=== PATIENT | male | born 1960 | race Caucasian/White ===

== ENCOUNTER 2016-09-02 12:42 | Day surgery (SDC) | payer BC ==
[2016-09-01 14:38] VITALS: BMI 35.2
[2016-09-02] MEDS ORDERED: PROPOFOL 20 ML ONE ×2 (13:27)
[2016-09-02] MEDS ORDERED: MIDAZOLAM HCL 2 MG/2 ML SINGLE DOSE VIAL ONE ×2 (13:28)
[2016-09-02] MEDS ORDERED: KETAMINE HCL 500 MG/10 ML VIAL ONE (13:28)
[2016-09-02] MEDS ORDERED: LIDOCAINE VISCOUS 2% ORAL/TOP 20 ML UNIT-DOSE CUP MM ONE (13:55)
[2016-09-02 14:47] VITALS: TEMP 98.1
--- NOTE | 2016-09-02 14:55 | PROC ---
Cardioversion Indication: Atrial flutter Risks and Benefits Explained: Yes Consent on Chart: Yes LUZ MARIA done prior to Cardioversion: Yes (No LA/SHAYLA/RA/RAA thrombus) LUZ MARIA findings: See report Patient anticoagulated: Yes (xarelto) - Procedure Anesthesiologist present: Yes Medication given: propofol sedation Joules delivered: 120J Rhythm post cardioversion: Sinus bradycardia, 57 bpm. Remarks: Successful cardioversion of atrial flutter to sinus rhythm (sinus bradycardia). - Con't current cardiac regimen. F/u with Dr. Martin in 2 weeks
[2016-09-02 15:52] VITALS: BP 114/78; PULSE 67
--- NOTE | 2016-09-03 16:28 | EKG ---
Test Reason : Blood Pressure : / mmHG Vent. Rate : 063 BPM Atrial Rate : 063 BPM P-R Int : 164 ms QRS Dur : 092 ms QT Int : 460 ms P-R-T Axes : 056 083 066 degrees QTc Int : 470 ms POOR DATA QUALITY, INTERPRETATION MAY BE ADVERSELY AFFECTED NORMAL SINUS RHYTHM BIATRIAL ENLARGEMENT INCOMPLETE RIGHT BUNDLE BRANCH BLOCK ABNORMAL ECG WHEN COMPARED WITH ECG OF 02-SEP-2016 13:38, SINUS RHYTHM HAS REPLACED ATRIAL FLUTTER QRS DURATION HAS DECREASED Confirmed by MALA ROLDAN MD ([id number]) on 09/03/2016 4:28:23 PM Referred By: Kim Maritn Confirmed By:MALA ROLDAN MD
== END 2016-09-02 16:01 | disposition home or self-care (01) ==
LOC: JASU-SURG 12:42 → JASU-ENDO 12:42
PROVIDERS: ATTEND Internal Medicine Cardiovascular Disease
PROC: 5A2204Z Restoration of Cardiac Rhythm, Single (ICD-10-PCS; 2016-09-02)
PROC: B246ZZ4 Ultrasonography of Right and Left Heart, Transesophageal (ICD-10-PCS; principal; 2016-09-02 13:00)
DX: I48.92 Unspecified atrial flutter (principal)
CPT/HCPCS: 92960; 93005; 93010; 93312; 93325

== ENCOUNTER 2016-11-04 10:37 | Inpatient (IN) | payer BC ==
[2016-11-04] MEDS ORDERED: DOPAMINE 400 MG/D5W - 250 ML IVPB ONE ×4 (10:58→23:52)
[2016-11-04 11:09] LABS: MCH 29.4 pg (25.7-33.7); MCHC 32.6 g/dl (32.0-35.9); MEAN CELL VOLUME 90.2 fl (80-96); MEAN PLT VOLUME 8.3 fl (7.5-11.1); PLATELET COUNT 95 K/MM3 (134-434); RDW 17.1 % (11.9-15.9)
[2016-11-04 11:11] LABS: ARTERIAL BLD GAS O2 SATURATION 99.1 % (90-98.9); ARTERIAL BLOOD GAS BASE EXCESS -2.7 meq/l (-2-2); ARTERIAL BLOOD GAS HCO3 29.2 meq/L (22-26)
[2016-11-04 11:12] LABS: ALLENS TEST POSITIVE; ART PUNCT SITE RIGHT RADIAL; LPM/O2% 100%; MECH. VENT. YES; METHEMOGLOBIN 0.7 % (0.4-1.5); PT. ON O2? YES; TYPE OF O2 VENT; VENT RATE 14; VT/PRESS 500
[2016-11-04 11:14] LABS: ARTERIAL BLOOD GAS pH 7.15 (7.35-7.45)
--- NOTE | 2016-11-04 11:14 | PDOC ---
History of Present Illness <Gentry Funk - Last Filed: 11/04/16 11:12> - General History Source: EMS, Family Exam Limitations: Unresponsive - History of Present Illness Initial Comments: 11/04/16 12:08 The patient is a 56-year-old male with a significant past medical history of HTN , cellulitis, smoking, COPD, diabetes, sleep apnea, obesity, and presents to the emergency department at 10:36am via EMS for cardiac arrest this morning. As per EMS, the patient was found at home by a friend who called 911 at 9:59 am. The friend reports that the patient was unconscious when he was found, lying immediately behind the door of his house. It is unknown exactly how long the patient was unconscious for before EMS arrived. As per EMS, the patient had two episodes of asystole, one of which occurred en route, and he was resuscitated for 25 minutes, upon which his pulse returned. The patient was given 3 epinephrine, 1 sodium bicarbonate, and 1g calcium chloride en route. His BP was 168/78 upon arrival to the ED. As per family, the patient was recommended by his decorative greens cutter for a cardiac catheter procedure, but was told to lose some weight first. The family also states that the patient was having difficulty moving his bowels this morning. The remaining history is limited as the patient is unresponsive. Allergies: NKDA Past Surgical History: pulmonary saturation, cardioversion x2 Social History: Smoker (half a pack per day), former alcohol user PCP: Dr. Macdonald Hotel Maintenance Engineer: Dr. Martin <KieranLeyla - Last Filed: 11/04/16 14:54> - General Chief Complaint: Cardiac Arrest Stated Complaint: CARDIAC ARREST Time Seen by Provider: 11/04/16 10:52 Past History - Past Medical History Anemia: No Asthma: No Cancer: No Cardiac Disorders: Yes (AFIB) CVA: No COPD: Yes (PT. SNORES) CHF: No Dementia: No Diabetes: No GI Disorders: No Disorders: No HTN: Yes Hypercholesterolemia: No Liver Disease: No Suicide Attempt (Hx): No Seizures: No Thyroid Disease: No - Surgical History Orthopedic Surgery: Yes (LEFT KNEE SURGERY, BACK SURGERY-DISC REMOVED, SPINAL FUSION,) - Immunization History Immunization Up to Date: Yes - Psycho/Social/Smoking Cessation Hx Anxiety: No Suicidal Ideation: No Smoking History: Current every day smoker Have you smoked in the past 12 months: Yes Number of Cigarettes Smoked Daily: 10 'Breaking Loose' booklet given: 09/02/16 Hx Alcohol Use: Yes (occaission) Drug/Substance Use Hx: No Substance Use Type: None Hx Substance Use Treatment: No <Gentry Funk - Last Filed: 11/04/16 11:12> <Leyla Alcaraz - Last Filed: 11/04/16 14:54> - Past Medical History Allergies/Adverse Reactions: Allergies Allergy/AdvReac Type Severity Reaction Status Date / Time No Known Allergies Allergy Verified 11/04/16 11:09 Home Medications: Ambulatory Orders Unobtainable [Unobtainable] 11/04/16 Review of Systems - Review of Systems Able to Perform ROS?: No (Patient is unresponsive) <Leyla Alcaraz - Last Filed: 11/04/16 14:54> *Physical Exam - Vital Signs Last Vital Signs Temp Pulse Resp BP Pulse Ox 57 L 15 91 L 11/04/16 10:40 11/04/16 10:40 11/04/16 10:40 <Gentry Funk - Last Filed: 11/04/16 11:12> - Vital Signs Last Vital Signs Temp Pulse Resp BP Pulse Ox 95.6 F L 116 H 14 122/67 100 11/04/16 10:37 11/04/16 11:30 11/04/16 11:30 11/04/16 11:30 11/04/16 11:30 - Physical Exam Comments: 11/04/16 12:08 GENERAL: (+) Completely unarousable HEAD: No signs of trauma EYES: (+) Pupils dilated and fixed. sclera anicteric, conjunctiva clear ENT: Auricles normal inspection, hearing grossly normal, nares patent, oropharynx clear without exudates. Moist mucosa NECK: Normal ROM, supple. No lymphadenopathy, JVD, or masses. LUNGS: (+)Breath sounds with bagging. No wheezes, and no crackles HEART: Regular rate and rhythm, normal S1 and S2, no murmurs, rubs or gallops. No ectopy. ABDOMEN: (+) Abdomen distended. Soft, nontender, normoactive bowel sounds. No guarding, no rebound. No masses EXTREMITIES: No edema. No clubbing or cyanosis. No cords, erythema, or tenderness NEUROLOGICAL: Cranial nerves II through XII grossly intact. SKIN: Warm, Dry, normal turgor, no rashes or lesions noted. <Leyla Alcaraz - Last Filed: 11/04/16 14:54> Heart Score/ECG Review - ECG Impressions Comment:: 11/04/16 14:53 Sinus tachycardia Biatrial enlargement Right bundle branch block T wave abnormality, consider inferior ischemia Abnormal ECG <Leyla Alcaraz - Last Filed: 11/04/16 14:54> ED Treatment Course - LABORATORY CBC & Chemistry Diagram: 11/04/16 10:55 11/04/16 10:55 <Gentry Funk - Last Filed: 11/04/16 11:12> - LABORATORY CBC & Chemistry Diagram: 11/04/16 12:30 11/04/16 11:50 - ADDITIONAL ORDERS Additional order review: Laboratory Results 11/04/16 11/04/16 11/04/16 11:03 11:03 11:00 INR Puncture Site ABG pH ABG pCO2 at Pt Temp ABG pO2 at Pt Temp ABG HCO3 ABG O2 Sat (Measured) ABG O2 Content ABG Base Excess Cricket Test Carboxyhemoglobin Methemoglobin O2 Delivery Device Oxygen Flow Rate Vent Mode Vent Rate Mechanical Rate PEEP Pressure Support Vent Sodium 137 Potassium 3.4 L Chloride 87 L Carbon Dioxide 29 D Anion Gap 21 H BUN 21 H Creatinine 1.8 H D Creat Clearance w eGFR 38.95 Random Glucose 257 H D Lactic Acid 4.075 H* Calcium 10.5 H Total Bilirubin 0.6 AST 402 H D ALT 364 H D Alkaline Phosphatase 129 H D Creatine Kinase Troponin I Total Protein 7.5 Albumin 3.2 L Crossmatch See Detail 11/04/16 11/04/16 11/04/16 11:00 11:00 11:00 INR 3.72 H Puncture Site Right radial ABG pH 7.15 L* D ABG pCO2 at Pt Temp 87.8 H* D ABG pO2 at Pt Temp 258.0 H* ABG HCO3 29.2 H ABG O2 Sat (Measured) 99.1 H ABG O2 Content 20.2 ABG Base Excess -2.7 L Cricket Test Positive Carboxyhemoglobin 4.8 H Methemoglobin 0.7 O2 Delivery Device Vent Oxygen Flow Rate 100% Vent Mode A/c Vent Rate 14 Mechanical Rate Yes PEEP 5.0 Pressure Support Vent 500 Sodium Potassium Chloride Carbon Dioxide Anion Gap BUN Creatinine Creat Clearance w eGFR Random Glucose Lactic Acid Calcium Total Bilirubin AST ALT Alkaline Phosphatase Creatine Kinase Cancelled Troponin I Cancelled Total Protein Albumin Crossmatch 11/04/16 10:55 INR Puncture Site ABG pH ABG pCO2 at Pt Temp ABG pO2 at Pt Temp ABG HCO3 ABG O2 Sat (Measured) ABG O2 Content ABG Base Excess Cricket Test Carboxyhemoglobin Methemoglobin O2 Delivery Device Oxygen Flow Rate Vent Mode Vent Rate Mechanical Rate PEEP Pressure Support Vent Sodium Cancelled Potassium Cancelled Chloride Cancelled Carbon Dioxide Cancelled Anion Gap Cancelled BUN Cancelled Creatinine Cancelled Creat Clearance w eGFR Random Glucose Cancelled Lactic Acid Calcium Cancelled Total Bilirubin AST ALT Alkaline Phosphatase Creatine Kinase Troponin I Total Protein Albumin Crossmatch 11/04/16 10:55 RBC 2.10 L D MCV 90.2 MCHC 32.6 RDW 17.1 H D MPV 8.3 - Medications Given in the ED: ED Medications Discontinued Medications Generic Name Dose Route Start Last Admin Trade Name Liza PRN Reason Stop Dose Admin Atropine Sulfate 0.5 mg 11/04/16 11:21 11/04/16 10:48 Atropine Injection - IVPUSH 11/04/16 11:22 0.5 mg ONCE ONE Administration Atropine Sulfate 0.5 mg 11/04/16 11:34 11/04/16 10:54 Atropine Injection - IVPUSH 11/04/16 11:35 0.5 mg NOW ONE Administration Epinephrine HCl 1 mg 11/04/16 11:33 11/04/16 10:55 Adrenalin 1:10,000 - IVPUSH 11/04/16 11:34 1 mg NOW ONE Administration Sodium Bicarbonate 50 meq 11/04/16 11:20 11/04/16 10:49 Sodium Bicarbonate 8.4% - IVPUSH 11/04/16 11:21 50 meq ONCE ONE Administration Sodium Bicarbonate 50 meq 11/04/16 11:20 11/04/16 11:59 Sodium Bicarbonate 8.4% - IVPUSH 11/04/16 11:21 50 meq ONCE ONE Administration <Leyla Alcaraz - Last Filed: 11/04/16 14:54> *DC/Admit/Observation/Transfer - Discharge Dispostion Admit: Yes <Gentry Funk - Last Filed: 11/04/16 11:12> - Attestations Scribe Attestion: 11/04/16 12:09 Documentation prepared by Leyla Alcaraz, acting as medical information specialist for Gentry Funk MD. <Leyla Alcaraz - Last Filed: 11/04/16 14:54> Diagnosis at time of Disposition: Cardiac arrest, Signs of return of spontaneous circulation - Discharge Dispostion Condition at time of disposition: Critical
[2016-11-04] MEDS ORDERED: SODIUM BICARBONATE 8.4% 50 MEQ/50 ML DISP.SYRIN IVPUSH ONE ×2 (11:20)
[2016-11-04] MEDS ORDERED: ATROPINE SULFATE 1 MG/10 ML DISP.SYRIN IVPUSH ONE ×2 (11:21→11:34)
[2016-11-04 11:23] LABS: INR 3.72 (0.82-1.09)
[2016-11-04] MEDS ORDERED: DOPAMINE 400 MG/D5W - 250 ML IVPB SCH (11:30)
[2016-11-04 11:36] LABS: ALBUMIN 3.2 g/dl (3.4-5.0); BILIRUBIN,TOTAL 0.6 mg/dL (0.2-1.0); CALCIUM 10.5 mg/dL (8.5-10.1); CREATININE 1.8 mg/dL (0.7-1.3); TOT PROT 7.5 g/dl (6.4-8.2)
[2016-11-04] MEDS ORDERED: SODIUM BICARBONATE 8.4% 50 MEQ/50 ML VIAL ONE (11:46)
[2016-11-04 12:00] LABS: BASOPHIL 0.3 % (0-2.0); EOSINOPHIL 0.8 % (0-4.5); MCH 29.1 pg (25.7-33.7); MCHC 32.2 g/dl (32.0-35.9); MEAN CELL VOLUME 90.3 fl (80-96); MEAN PLT VOLUME 8.6 fl (7.5-11.1); NEUTROPHILS 88.7 % (42.8-82.8); PLATELET COUNT 203 K/MM3 (134-434); RDW 17.6 % (11.9-15.9); WHITE BLOOD COUNT 8.7 K/mm3 (4.0-10.0)
[2016-11-04] MEDS ORDERED: SODIUM CHLORIDE 1,000 ML IV ONE ×2 (12:15→12:33)
[2016-11-04 12:26] LABS: ALBUMIN 3.4 g/dl (3.4-5.0); BILIRUBIN,TOTAL 0.7 mg/dL (0.2-1.0); CALCIUM 9.7 mg/dL (8.5-10.1); CREATININE 1.8 mg/dL (0.7-1.3); TOT PROT 8.1 g/dl (6.4-8.2)
[2016-11-04 12:35] LABS: TROPONIN I 0.39 ng/ml (0.00-0.05)
[2016-11-04 12:37] LABS: BASOPHIL 0.3 % (0-2.0); EOSINOPHIL 0.4 % (0-4.5); MCH 28.9 pg (25.7-33.7); MCHC 32.1 g/dl (32.0-35.9); MEAN CELL VOLUME 90.1 fl (80-96); MEAN PLT VOLUME 8.5 fl (7.5-11.1); NEUTROPHILS 93.3 % (42.8-82.8); PLATELET COUNT 196 K/MM3 (134-434); RDW 17.5 % (11.9-15.9); WHITE BLOOD COUNT 15.8 K/mm3 (4.0-10.0)
[2016-11-04 12:40] LABS: WHITE BLOOD COUNT 4.9 K/mm3 (4.0-10.0)
[2016-11-04 13:07] VITALS: BMI 38.5
--- NOTE | 2016-11-04 13:35 | CONSULT ---
Consultation: REQUESTING PROVIDER: Dr. Macdonald CONSULT REQUEST: We have been asked to medically evaluate this patient for ICU care. HISTORY OF PRESENT ILLNESS: 56 yo M w/ h/o COPD, DM2, MARLEY, obesity, former smoker, cellulitis admitted to the ICU from ED s/p cardiac arrest. Per ED, patient dropped off his girlfriend at work at ~8am and he's found unresponsive and pulseless at 10am by his friend at home. He was asystole en route to ED and resuscitated for 25 mins and 3 epi, 1 NaCO3, 1 CaCl2 were given. He's asystole again in ED with SHANNON in sinus rhythm. Cardioverted twice in office by Dr. Klein (in 12/2015 and 08/2016) REVIEW OF SYSTEMS: Unable to assess PHYSICAL EXAMINATION Intubated on mechanical ventilation Vent settings: AC, RR 20, TV 400, FiO2 100, PEEP 19 On dopamine 15 mcg Last Vital Signs Temp Pulse Resp BP Pulse Ox 95.6 F L 106 H 14 110/66 94 L 11/04/16 10:37 11/04/16 12:55 11/04/16 12:55 11/04/16 12:55 11/04/16 12:40 GENERAL: Intubated, unresponsive to all stimuli, on pressor HEAD:AT, NC EYES: B/L dilated pupils, non-reactive, no corneal reflex LUNGS: CTAB HEART: Tachycardic, regular rhythm, S1 and S2, no murmur, rub ABDOMEN: Soft, obese, mild distention, EXTREMITIES: Cold, weak pulses, no edema. ABG Results ABG pH 7.15 (7.35-7.45) L* D 11/04/16 11:00 ABG pCO2 at Pt Temp 87.8 mmHg (35-45) H* D 11/04/16 11:00 ABG pO2 at Pt Temp 258.0 mmHg (80-100) H* 11/04/16 11:00 ABG HCO3 29.2 meq/L (22-26) H 11/04/16 11:00 ABG O2 Sat (Measured) 99.1 % (90-98.9) H 11/04/16 11:00 ABG O2 Content 20.2 % vol (15-22) 11/04/16 11:00 ABG Base Excess -2.7 meq/l (-2-2) L 11/04/16 11:00 CBCD WBC 15.8 K/mm3 (4.0-10.0) H D 11/04/16 12:30 RBC 5.48 M/mm3 (4.00-5.60) 11/04/16 12:30 Hgb 15.9 GM/dL (11.7-16.9) 11/04/16 12:30 Hct 49.4 % (35.4-49) H 11/04/16 12:30 MCV 90.1 fl (80-96) 11/04/16 12:30 MCHC 32.1 g/dl (32.0-35.9) 11/04/16 12:30 RDW 17.5 % (11.9-15.9) H 11/04/16 12:30 Plt Count 196 K/MM3 (134-434) 11/04/16 12:30 MPV 8.5 fl (7.5-11.1) 11/04/16 12:30 CMP Sodium 137 mmol/L (136-145) 11/04/16 11:50 Potassium 3.2 mmol/L (3.5-5.1) L 11/04/16 11:50 Chloride 89 mmol/L (98-107) L 11/04/16 11:50 Carbon Dioxide 33 mmol/L (21-32) H 11/04/16 11:50 Anion Gap 15 (8-16) 11/04/16 11:50 BUN 21 mg/dL (7-18) H 11/04/16 11:50 Creatinine 1.8 mg/dL (0.7-1.3) H 11/04/16 11:50 Creat Clearance w eGFR 38.95 (>60) 11/04/16 11:50 Calcium 9.7 mg/dL (8.5-10.1) 11/04/16 11:50 Total Bilirubin 0.7 mg/dL (0.2-1.0) 11/04/16 11:50 AST 510 U/L (15-37) H D 11/04/16 11:50 ALT 482 U/L (12-78) H D 11/04/16 11:50 Alkaline Phosphatase 159 U/L (45-117) H D 11/04/16 11:50 Total Protein 8.1 g/dl (6.4-8.2) 11/04/16 11:50 Albumin 3.4 g/dl (3.4-5.0) 11/04/16 11:50 Active Medications Generic Name Dose Route Start Last Admin Trade Name Freq PRN Reason Stop Dose Admin Chlorhexidine Gluconate 1 applic 11/04/16 22:00 Hibiclens For Decolonization - TP HS SUSHANT Heparin Sodium (Porcine) 5,000 unit 11/04/16 18:00 Heparin - SQ Q8H-IV SUSHANT Dopamine HCl/Dextrose 250 mls @ 22.963 mls/hr 11/04/16 11:30 Dopamine 400 Mg/D5w - IVPB TITR SUSHANT Protocol 5 MCG/KG/MIN Dopamine HCl/Dextrose 250 mls @ 45.926 mls/hr 11/04/16 11:35 11/04/16 11:00 Dopamine 400 Mg/D5w - IVPB 11/04/16 17:01 45.926 mls/hr TITR ONE Administration Protocol 10 MCG/KG/MIN Sodium Chloride 1,000 mls @ 1,000 mls/hr 11/04/16 12:33 11/04/16 10:37 Normal Saline - IV 11/04/16 13:32 1,000 mls/hr ASDIR ONE Administration Mupirocin 1 applic 11/04/16 22:00 Bactroban Ointment (For Decolonization) - NS 11/09/16 21:[address] spine on 11/04: negative for fracture or acute pathology CT head on 11/04: Moderate soft tissue swelling over left side. Cannot r/o brain edema. ASSESSMENT/PLAN: 56 yo M w/ h/o COPD, DM2, MARLEY, obesity, former smoker, cellulitis admitted to the ICU from ED s/p cardiac arrest. Cardiac: Cardiogenic shock s/p cardiac arrest; a-fib on elliquis - Etiology unknown - DC unlikely, will trend troponins - Bedside ECHO - On dopamine maintain MAP > 65% Pulm: Acute respiratory failure - ARDS vs. pulmonary edema - Solumedrol 60mg Q8H - Intubated on vent - Maintain Sat > 88% - Low plateau pressure < 30 - Low tidal volume ventilation - PRN and SUSHANT nebulizer Neuro: Anoxic brain injury s/p cardiac arrest - GCS 3 - Unresponsive to all stimuli - Likely evolving brain edema ID: Septic shock vs. leukomoid reaction - Elevated WBC with hypothermia - Trend lactate - F/U mueller cultures - SOFA score = 19 - On empiric vanco and zosyn (Day 1) Renal: Respiratory acidosis - Cont. hydration - F/U ABG FEN - NS 125ml/hr, received 2L in ED - Cont. to monitor lytes - NPO Prophylaxis - DVT: hold - GI: start PPI tomorrow Disposition - Poor prognosis, Full code x 24 hrs per family's wish, Will consider DNR afterwards - Cont. to monitor in ICU Code status - Full code Visit type - Emergency Visit Emergency Visit: Yes ED Registration Date: 11/04/16 Care time: The patient presented to the Emergency Department on the above date and was hospitalized for further evaluation of their emergent condition. - New Patient This patient is new to me today: Yes Date on this admission: 11/04/16 - Critical Care Critical Care patient: Yes Total Critical Care Time (in minutes): 50 Critical Care Statement: The care of this patient involved high complexity decision making to prevent further life threatening deterioration of the patient 's condition and/or to evalute & treat vital organ system(s) failure or risk of failure.
[2016-11-04] MEDS ORDERED: HEPARIN NA (PORCINE) 5,000 UNITS/ML 1ML VIAL SQ SCH (14:00)
[2016-11-04] MEDS: SODIUM CHLORIDE 1,000 ML IV SCH (14:00)
--- NOTE | 2016-11-04 14:46 | CON.CARD ---
Cardiology Consult (text) - Consultation Consultation Note: CC: PEA arrest 56 yo smoker with h/o afib/flutter on xarelto, HTN, HL, diastolic heart failure , severe pulmonary HTN, ?COPD, severe ANGELY presents s/p PEA arrest. Per report, patient was in usual state of health this morning, but found down in his kitchen (unknown duration) by a friend. Multiple episodes of asystole in ambulance and in ER with ROSC (s/p ACLS x 25 minutes) Family states that he shoveled snow two days ago without symptoms. Yesterday noticed some fatigue which had resolved by this morning. Denied any symptoms today. LE edema had improved per family. no cp, sob, dizziness, palps. No recent f/c/ s, cough, congestion, n/v/d, headache, rashes, visual disturbances or transient neurologic symptoms, per reprot. Yarding Engineer: Dr. Martin PMHx: Per hPi. Also on methadone PRN 3-4 times/week for OA pain. Past surgical hx: TKR Social hx: Current tobacco use, 2-3 beers twice per week, no illicits Fam hx: No cardiac disease ROS: Per hPI, limited. obtained from family Ambulatory Orders home cardiac meds: torsemide 100 mg/day, Xarelto 20 mg/day, diltiazem 240 mg BID, metoprolol 100 mg BID, potassium 20 meq/day, atorvastatin 40 mg/day. Current Medications Chlorhexidine Gluconate (Hibiclens For Decolonization -) 1 applic TP HS SUSHANT Heparin Sodium (Porcine) (Heparin -) 5,000 unit SQ TID SUSHANT Dopamine HCl/Dextrose (Dopamine 400 Mg/D5w -) 250 mls @ 25.515 mls/hr IVPB TITR SUSHANT; 5 MCG/KG/MIN PRN Reason: Protocol Dopamine HCl/Dextrose (Dopamine 400 Mg/D5w -) 250 mls @ 45.926 mls/hr IVPB TITR ONE; 10 MCG/KG/MIN PRN Reason: Protocol Stop: 11/04/16 17:01 Last Admin: 11/04/16 11:00 Dose: 45.926 mls/hr Sodium Chloride (Normal Saline -) 1,000 mls @ 125 mls/hr IV ASDIR SUSHANT Mupirocin (Bactroban Ointment (For Decolonization) -) 1 applic NS BID [facility] Stop: 11/09/16 21:59 Vital Signs - 24 hr 11/04/16 11/04/16 11/04/16 10:37 10:40 11:00 Temperature 95.6 F L Pulse Rate 51 L 57 L 55 L Pulse Rate [ Apical] Respiratory 14 Rate Blood Pressure 68/36 77/47 Blood Pressure [Left Arm] O2 Sat by Pulse 98 91 L Oximetry (%) 11/04/16 11/04/16 11/04/16 11:15 11:18 11:19 Temperature Pulse Rate 116 H Pulse Rate [ Apical] Respiratory 14 15 Rate Blood Pressure Blood Pressure [Left Arm] O2 Sat by Pulse 100 Oximetry (%) 11/04/16 11/04/16 11/04/16 11:30 12:40 12:55 Temperature Pulse Rate 106 H Pulse Rate [ 116 H 103 H Apical] Respiratory 14 14 14 Rate Blood Pressure 110/66 Blood Pressure 122/67 101/67 [Left Arm] O2 Sat by Pulse 100 94 L Oximetry (%) 11/04/16 13:35 Temperature Pulse Rate Pulse Rate [ Apical] Respiratory 16 Rate Blood Pressure Blood Pressure [Left Arm] O2 Sat by Pulse Oximetry (%) Intake & Output 11/02/16 11/03/16 11/04/16 11/05/16 07:59 07:59 07:59 07:59 Output Total 20 Balance -20 Weight 300 lb Intubated, sedated. unresponsive pupils fixed and dilated no gag reflex jvd tds tachycardic, regular. nl s1, s2. no m/r/g coarse bs, + wheezes/rales + bs soft nt nd no hepatosplenomegaly ext without e/c/c + dp/pt no jaundice, diaphoresis CBC, BMP 11/04/16 12:30 11/04/16 11:50 Laboratory Tests 11/04/16 11/04/16 11/04/16 11:00 11:00 11:00 INR 3.72 H ABG pH 7.15 L* D ABG pCO2 at Pt Temp 87.8 H* D ABG pO2 at Pt Temp 258.0 H* ABG HCO3 29.2 H Carboxyhemoglobin 4.8 H Potassium 3.4 L Creatinine 1.8 H D Lactic Acid Total Bilirubin 0.6 AST 402 H D ALT 364 H D Alkaline Phosphatase 129 H D Creatine Kinase Creatine Kinase Index Albumin 3.2 L 11/04/16 11/04/16 11:03 11:50 INR ABG pH ABG pCO2 at Pt Temp ABG pO2 at Pt Temp ABG HCO3 Carboxyhemoglobin Potassium Creatinine Lactic Acid 4.075 H* Total Bilirubin AST ALT Alkaline Phosphatase Creatine Kinase 207 D Creatine Kinase Index 4.0 Albumin Initial EKG: intermittent ectopic atrial beats and junctional/ventricular escape beats. ventricular rate 51 bpm Repeat EKG: likely sinus tach, RBBB. Non-specific t wave changes. No acute ischemic changes. tele: sinus tach, no events CXR: read as no infiltrates. But by my review appears to have possible vascular congestion (although 4 quadrant without obvious effusions, could also be c/w ARDS) 08/2016 LUZ MARIA: No thrombus. Nl lv size/fn. RV dilated, nl func. Mod TR. 2015 echo: Mild LVH. Nl LV size and function. E to A reversal. Mild RV dilation. RVSP 31 + RAP, mild pHTN. Mild asc ao dilation 2015 persantine stress MPI: no EKG changes. Nl perf. nl EF 2014 echo: Nl LV/RV. mild-mod TR. RVSP:>60. 56 yo smoker with h/o afib/flutter on xarelto, HTN, HL, diastolic heart failure , severe pulmonary HTN, ?COPD, severe ANGELY presents s/p PEA arrest. PEA arrest - suspect pulmonary etiology. CE's only mildly elevated. EKG without evidence of [place]. Con't trending enzymes. Can consider repeating echo if patient has some neurologic recovery. - potassium repletion. - management of hypercapneic/hypoxic respiratory failure per pulm/critical care. Currently intubated, sedated. - telemetry monitoring for arrhythmia, Symptomatic paroxysmal atrial flutter/ fibrillation --> currently in SR - Followed by [facility] and is a candidate for flutter/fib ablation. However, dr. avila recommended delaying until he was able to improve underlying risk factors's (ie. weight loss, ANGELY treatment) - continue anticoagulation. INR is not a reliable indicator of xarelto drug levels. Since patient is NPO, would initiate heparin drip tomorrow morning (or 24 hours after last xarelto dose) - holding rate control meds (outpatient regimen diltiazem 240 mg BID, metoprolol 100 mg BID) while on pressors diastolic dysfunction/chronic LE edema with recurrent cellulitis and LE wounds. - had been recovering from acute exacerbation in june in setting of RVR. Diuresis had stalled in setting of aflutter and picked up again after conversion to SR in August. Had not yet returned to euvolemia and was undergoing active uptitration of diuretic regimen over past few months. Torsemide last increased the first week of october and currently with significant improvement in LE edema. - Appears euvolemic.OK for IVF if needed. Holding torsemide. severe (most recently mild) pulmonary hypertension with RV enlargement - + severe angely with baseline supine hypoxemia and superimposed desaturations/ obesity hypoventilation. Had recently followed up on BIPAP titration, but not yet had successful titration study. - also with underlying pulmonary disease (chronic hypercapnea) getting ongoing work up. PFT's this month described as severe airway obstruction but with reduced lung volumes. Interpreted as severe restriction. Pre and post oxygen saturation testing had been pending. - Management of current hypercapneic/hypoxic respiratory failure per pmd. HTN with LVH - currently hypotensive requiring pressors. HL - holding statin while npo mild ao dilation - holding metoprolol as above Overall poor prognosis, exam concerning for irreversible brain injury. Discussed with pulm/critical care, pmd and family. Family aware of prognosis. Would like to monitor over the next 24 hours and then decide on goals of care. est cct 40 min.
--- NOTE | 2016-11-04 15:10 | HP ---
Admitting History and Physical - Primary Care Physician PCP: Yu Macdonald - Admission Chief Complaint: cardiac arrest History of Present Illness: Family found pt unresponsive, asystole upon ems arrival, downtime is anywhere from 30 minutes to over 2 hours. Was resuscitated twice from asystole. Currently intubated/unresponsive. Shoveled snow two days ago, was c/o of constipation for 3 days,otherwise live-in -girlfriend offers no other complaints from pt. History Source: Significant Other Limitations to Obtaining History: Intubated - Past Medical History Cardiovascular: Yes: AFIB (flutter s/p cardioversion twice within last year, most recent Aug 2016), CHF (diastolic), HTN, Pulmonary Hypertension, Other ( bilateral chronic lower extremitiy cellulitis) Pulmonary: Yes: Sleep Apnea Musculoskeletal: Yes: Other (s/p left TKR) - Past Surgical History Past Surgical History: Yes: Joint Replacement (L TKR) - Advance Directives Advance Directives: No: Health Care Proxy - Smoking History Smoking history: Current every day smoker Have you smoked in the past 12 months: Yes Aproximately how many cigarettes per day: 10 - Alcohol/Substance Use Hx Alcohol Use: Yes (occaission) - Social History Usual Living Arrangement: Yes: With Significant Other ADL: Independent 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 History of Recent Travel: No Home Medications - Allergies Allergies/Adverse Reactions: Allergies Allergy/AdvReac Type Severity Reaction Status Date / Time No Known Allergies Allergy Verified 11/04/16 11:09 - Home Medications Home Medications: Ambulatory Orders Unobtainable [Unobtainable] 11/04/16 Family Disease History - Family Disease History Family Disease History: CA: Brother (Prostate) Review of Systems Unable to obtain ROS, reason: unresponsive Physical Examination Vital Signs: Vital Signs Temperature 95.6 F L 11/04/16 10:37 Pulse Rate 106 H 11/04/16 12:55 Respiratory Rate 16 11/04/16 13:35 Blood Pressure 110/66 11/04/16 12:55 O2 Sat by Pulse Oximetry (%) 94 L 11/04/16 12:40 Constitutional: Yes: Obese Eyes: Yes: Other (conjunctival injection) Neck: Yes: Other (thick) Cardiovascular: Yes: Tachycardia (mild sinus tach ~106/min) Respiratory: Yes: CTA Bilaterally, Mechanically Ventilated Gastrointestinal: Yes: Abdomen, Obese, Distention Edema: LLE: Trace, RLE: Trace Peripheral Pulses WNL: Yes Neurological: Yes: Unresponsive (pupils fixed and dilated, absent corneal reflex ) Labs: CBC, BMP 11/04/16 12:30 11/04/16 11:50 INR >3 first set of cardiac enzymes Imaging - Results Chest X-ray: Report Reviewed X-ray: Report Reviewed Cat Scan: Report Reviewed Problem List - Problems (1) Cardiac arrest Code(s): I46.9 - CARDIAC ARREST, CAUSE UNSPECIFIED (2) Atrial fibrillation Code(s): I48.91 - UNSPECIFIED ATRIAL FIBRILLATION Qualifiers: Atrial fibrillation type: paroxysmal Qualified Code(s): I48.0 - Paroxysmal atrial fibrillation (3) Congestive heart failure Code(s): I50.9 - HEART FAILURE, UNSPECIFIED Qualifiers: Congestive heart failure type: diastolic Congestive heart failure chronicity: chronic Qualified Code(s): I50.32 - Chronic diastolic ( congestive) heart failure (4) Diastolic CHF Code(s): I50.30 - UNSPECIFIED DIASTOLIC (CONGESTIVE) HEART FAILURE Qualifiers : Qualified Code(s): I50.30 - Unspecified diastolic (congestive) heart failure (5) Hypertension Code(s): I10 - ESSENTIAL (PRIMARY) HYPERTENSION Qualifiers: Hypertension type: essential hypertension Qualified Code(s): I10 - Essential (primary) hypertension (6) MARLEY (obstructive sleep apnea) Code(s): G47.33 - OBSTRUCTIVE SLEEP APNEA (ADULT) (PEDIATRIC) Assessment/Plan Cardiac arrest/asystole severe MARLEY COPD diastolic CHF Afib/flutter s/p cardioversion twice Obesity Smoking history shock liver Plan iv fluids dopamine resume AC once INR is below 2 resp support
[2016-11-04 16:08] LABS: ARTERIAL BLD GAS O2 SATURATION 83.6 % (90-98.9); ARTERIAL BLOOD GAS BASE EXCESS 4.6 meq/l (-2-2); ARTERIAL BLOOD GAS HCO3 34.8 meq/L (22-26)
[2016-11-04 16:09] LABS: ALLENS TEST POSITIVE; ART PUNCT SITE RIGHT RADIAL; ARTERIAL BLOOD GAS pH 7.29 (7.35-7.45); LPM/O2% 100; MECH. VENT. YES; PT. ON O2? YES; TYPE OF O2 VENT; VENT RATE 20; VT/PRESS 400
[2016-11-04 16:10] LABS: ARTERIAL BLOOD GAS PO2 56.7 mmHg (80-100)
--- NOTE | 2016-11-04 16:28 | PN ---
Teaching Attending Note Name of Resident: [employer] [facility] ATTENDING PHYSICIAN STATEMENT I saw and evaluated the patient. I reviewed the resident's note and discussed the case with the resident. I agree with the resident's findings and plan as documented. SUBJECTIVE: Briefly, 56yo male with h/o COPD, chronic hypercapneic respiratory failure, MARLEY not on PAP, morbid obesity, pulmonary HTN, atrial fibrillation on anticoagulation, CKD who was found unresponsive for unknown duration in asystolic cardiac arrest s/p ACLS x 25 minutes. Currently in the ICU, intubated , unresponsive on dopamine gtt. OBJECTIVE: Last Vital Signs Temp Pulse Resp BP Pulse Ox 94.4 F L 102 H 20 109/80 92 L 11/04/16 16:00 11/04/16 16:00 11/04/16 16:00 11/04/16 16:00 11/04/16 13:30 Intake & Output 11/01/16 11/02/16 11/03/16 11/04/16 23:59 23:59 23:59 23:59 Output Total 20 Balance -20 Weight 300 lb Gen: intubated, unresponsive, +spontaneous breaths HEENT: pupils fixed, dilated, no oculocephalic reflex, no gag or cough reflex Heart: RRR Lung: distant breath sounds Abd: soft, obese, nontender Ext: + edema CBC, BMP 11/04/16 12:30 11/04/16 11:50 ABG Results ABG pH 7.29 (7.35-7.45) L 11/04/16 16:01 ABG pCO2 at Pt Temp 74.5 mmHg (35-45) H* 11/04/16 16:01 ABG pO2 at Pt Temp 56.7 mmHg (80-100) L D 11/04/16 16:01 ABG HCO3 34.8 meq/L (22-26) H 11/04/16 16:01 ABG O2 Sat (Measured) 83.6 % (90-98.9) L 11/04/16 16:01 ABG O2 Content 21.2 % vol (15-22) 11/04/16 16:01 ABG Base Excess 4.6 meq/l (-2-2) H 11/04/16 16:01 INR, PTT INR 3.72 (0.82-1.09) H 11/04/16 11:00 Active Medications Chlorhexidine Gluconate (Hibiclens For Decolonization -) 1 applic TP HS SUSHANT Dopamine HCl/Dextrose (Dopamine 400 Mg/D5w -) 250 mls @ 25.515 mls/hr IVPB TITR SUSHANT; 5 MCG/KG/MIN PRN Reason: Protocol Dopamine HCl/Dextrose (Dopamine 400 Mg/D5w -) 250 mls @ 45.926 mls/hr IVPB TITR ONE; 10 MCG/KG/MIN PRN Reason: Protocol Stop: 11/04/16 17:01 Last Titration: 11/04/16 12:00 Dose: 13.56 mcg/kg/min Sodium Chloride (Normal Saline -) 1,000 mls @ 125 mls/hr IV ASDIR SUSHANT Last Admin: 11/04/16 14:00 Dose: 125 mls/hr Pantoprazole Sodium (Protonix 40mg Ivpb (Pre-Docked)) 100 mls @ 200 mls/hr IVPB DAILY SUSHANT Mupirocin (Bactroban Ointment (For Decolonization) -) 1 applic NS BID SUSHANT Stop: 11/09/16 21:59 ASSESSMENT AND PLAN: s/p Cardiopulmonary Arrest - suspect Primary respiratory arrest Acute on Chronic Hypercapneic and Hypoxic Respiratory Failure r/o Acute COPD Exacerbation r/o ARDS vs Acute Pulmonary Edema Shock - cardiogenic vs septic Acute Kidney Injury Elevated LFTs likely ischemic injury Lactic Acidosis MARLEY/OHS Morbid Obesity Atrial Fibrillation Pulmonary HTN - IVF - pressor support to maintain MAP >65 - empiric medrol - inhaled bronchodilators - mueller culture - start empiric antibiotics after cultures collected - trend lactate, LFTs - cycle cardiac enzymes - echocardiogram - low tidal volume ventilation, titrate PEEP, FiO2 to maintain SpO2 88% if possible - poor overall prognosis for meaningful recovery given current neurologic exam but will continue supportive care - DVT/GI prophylaxis - ICU monitoring Thank you for this consult Mal Tarango MD - minimize sedation
[2016-11-04] MEDS ORDERED: VANCOMYCIN 1 GRAM (PRE-DOCKED) 1,000 MG/250 ML BAG IVPB ONE ×2 (17:00→22:00)
[2016-11-04 17:33] LABS: URINE APPEARANCE SLCLOUDY; URINE BILIRUBIN NEGATIVE (NEGATIVE); URINE COLOR YELLOW; URINE GLUCOSE (UA) 1+ (NEGATIVE); URINE KETONE TRACE (NEGATIVE); URINE LEUK ESTERASE NEGATIVE (NEGATIVE); URINE NITRITE NEGATIVE (NEGATIVE); URINE UROBILINOGEN NEGATIVE E.U./dl (0.2-1.0)
[2016-11-04 17:34] LABS: URINE BLOOD 2+ (NEGATIVE); URINE PROTEIN 3+ (NEGATIVE)
[2016-11-04 17:38] LABS: URINE RBC 65 /hpf (0-3); URINE WBC 6 /hpf (3-5)
[2016-11-04] MEDS: PIPERACILLIN/TAZOB 2.25 GM 50 ML IVPB SCH ×2 (18:08→20:43)
[2016-11-04] MEDS: methylPREDNISolone NA SUCC 125 MG/2 ML VIAL IVPB SCH (18:09)
[2016-11-04 18:10] LABS: INR 1.45 (0.82-1.09); PROTHROMBIN TIME (PATIENT) 16.1 SEC (9.98-11.88)
[2016-11-04] MEDS: KCL 10 MEQ IVPB 100 ML IVPB SCH ×3 (19:00→21:04)
[2016-11-04 19:08] LABS: TROPONIN I 2.75 ng/ml (0.00-0.05)
[2016-11-04] MEDS ORDERED: ASPIRIN SUPPOSITORY 600 MG SUPP.RECT PR SCH (19:30)
[2016-11-04] MEDS: ASPIRIN 300 MG SUPP.RECT RC SCH (20:40)
[2016-11-04] MEDS: MUPIROCIN 2% TOPICAL OINTMENT FOR DECOLONIZATION NS SCH (21:04)
[2016-11-04] MEDS: CHLORHEXIDINE GLUCONATE 4% CLEANSER FOR DECOLONIZATION TP SCH (21:05)
[2016-11-04] MEDS ORDERED: VANCOMYCIN 1,000 MG in DEXTROSE 5%-WATER - 250 ML IVPB SCH (22:00)
[2016-11-04 22:33] LABS: MAGNESIUM 1.9 mg/dL (1.8-2.4); PHOSPHOROUS 5.8 mg/dL (2.5-4.9)
[2016-11-04 22:48] LABS: TROPONIN I 4.71 ng/ml (0.00-0.05)
[2016-11-05] MEDS: methylPREDNISolone NA SUCC 125 MG/2 ML VIAL IVPB SCH ×4 (02:50→22:36)
[2016-11-05] MEDS: PIPERACILLIN/TAZOB 2.25 GM 50 ML IVPB SCH (02:50)
[2016-11-05] MEDS ORDERED: hydrALAZINE HCL 20 MG/ML VIAL IVPUSH ONE (04:12)
[2016-11-05] MEDS ORDERED: ATROPINE SULFATE 1 MG/10 ML DISP.SYRIN ONE (04:13)
[2016-11-05] MEDS ORDERED: MANNITOL 25% 12.5 GM/50 ML VIAL IVPB ONE (04:29)
--- NOTE | 2016-11-05 04:40 | PN ---
Progress Note (short form) - Note Progress Note: Called bedside by RN for HTN (225/150), bradycardia and irregular resp rate. Briefly this patient had prolonged arrest x2 likely with severe anoxic brain injury On initial exam in ICU pupils unresponsive, no gag, no cough, no corneals but did have spont respirations. At 4:15AM patient neurologic exam unchanged. Given signs of nicole's triad patient treated for cerebral edema: mannitol 1mg/kg. Hydralazine ordered given CPP >120. We are unable to obtain CT head at this time given severe hypoxia on mechanical ventilation 100%, PEEP +14 and sat 70-80%. Exam: HR: 45 BP 225/150 RR: 22 Sat 75% Exam: Neuro: pupils: 6mm and non reactive, no gag, no cough, no corneals Pulm: bilateral coarse CV: bradycardia S1, S2 Assessment/Plan: 56 yo man with prolonged cardiac arrest x2 likely severe anoxic injury now with cushings triad c/f cerebral edema +/- seizure -neurology consulted -cont hypothermia protocol -CT head once stable -empiric mannitol for ICP crisis: 1mg/kg x1 -send serum osm and urine osm and follow per neurology -hydralazine for goal CPP 80-120 -start empiric keppra given possible seizure -EEG Boerem ACNP Pulm/CCM CCT: 35m Problem List - Problems (1) Anoxic brain injury Code(s): G93.1 - ANOXIC BRAIN DAMAGE, NOT ELSEWHERE CLASSIFIED (2) Cerebral edema due to anoxia Code(s): G93.6 - CEREBRAL EDEMA R09.02 - HYPOXEMIA
[2016-11-05] MEDS: levETIRAcetam 500 MG/5 ML INJECTION VIAL IVPB SCH ×3 (05:00→23:19)
[2016-11-05 07:42] LABS: ARTERIAL BLD GAS O2 SATURATION 93.8 % (90-98.9); ARTERIAL BLOOD GAS BASE EXCESS 1.8 meq/l (-2-2); ARTERIAL BLOOD GAS HCO3 29.2 meq/L (22-26)
[2016-11-05 07:43] LABS: ALLENS TEST POSITIVE; ART PUNCT SITE RIGHT RADIAL; LPM/O2% 100%; PT. ON O2? YES
[2016-11-05 07:44] LABS: MECH. VENT. ESPRIT; TYPE OF O2 MEC.VENT; VENT RATE 20; VT/PRESS 400
[2016-11-05 07:45] LABS: ARTERIAL BLOOD GAS pH 7.33 (7.35-7.45)
[2016-11-05 07:46] LABS: ARTERIAL BLOOD GAS PO2 74.1 mmHg (80-100)
[2016-11-05] MEDS: DOPAMINE 400 MG/D5W - 250 ML IVPB SCH (08:00)
--- NOTE | 2016-11-05 08:04 | PN ---
Progress Note, Physician Chief Complaint: ID Full note dictated Cardiac arrest Comatose Pupils fixed dilated - Current Medication List Current Medications: Active Medications Aspirin (Asa -) 600 mg RC DAILY [facility] Last Admin: 11/04/16 20:40 Dose: 600 mg Chlorhexidine Gluconate (Hibiclens For Decolonization -) 1 applic TP HS [facility] Last Admin: 11/04/16 21:05 Dose: 1 applic Sodium Chloride (Normal Saline -) 1,000 mls @ 125 mls/hr IV ASDIR SUSHANT Last Admin: 11/04/16 14:00 Dose: 125 mls/hr Pantoprazole Sodium (Protonix 40mg Ivpb (Pre-Docked)) 100 mls @ 200 mls/hr IVPB DAILY SUSHANT Piperacillin Sod/Tazobactam Sod (Zosyn 2.25gm Ivpb (Pre-Docked)) 50 mls @ 100 mls/hr IVPB Q6H-IV SUSHANT PRN Reason: Protocol Last Admin: 11/05/16 02:50 Dose: 100 mls/hr Vancomycin HCl 1,000 mg/ (Dextrose) 250 mls @ 250 mls/hr IVPB BID SUSHANT PRN Reason: Protocol Stop: 11/05/16 21:59 Levetiracetam (Keppra Injection -) 1,000 mg IVPB BID [facility] Last Admin: 11/05/16 05:00 Dose: 1,000 mg Methylprednisolone Sodium Succinate (Solu-Medrol -) 60 mg IVPB Q8H-IV SUSHANT Last Admin: 11/05/16 02:50 Dose: 60 mg Mupirocin (Bactroban Ointment (For Decolonization) -) 1 applic NS BID [facility] Stop: 11/09/16 21:59 Last Admin: 11/04/16 21:04 Dose: 1 applic - Objective Vital Signs: Vital Signs Temperature 95 F L 11/05/16 05:00 Pulse Rate 76 11/05/16 07:00 Respiratory Rate 21 11/05/16 07:17 Blood Pressure 140/67 11/05/16 07:00 O2 Sat by Pulse Oximetry (%) 95 11/04/16 22:13 Constitutional: Yes: Severe Distress Cardiovascular: Yes: S1, S2 Respiratory: Yes: Rhonchi Gastrointestinal: Yes: Distention, Hypoactive Bowel Sounds. No: Tenderness Edema: No Labs: CBC, BMP 11/04/16 12:30 INR, PTT INR 1.45 (0.82-1.09) H D 11/04/16 17:00 Problem List - Problems (1) Anoxic brain injury Code(s): G93.1 - ANOXIC BRAIN DAMAGE, NOT ELSEWHERE CLASSIFIED (2) Cardiac arrest Code(s): I46.9 - CARDIAC ARREST, CAUSE UNSPECIFIED Assessment/Plan Laboratory Tests 11/04/16 11/04/16 11/04/16 11:00 11:03 11:50 WBC RBC Hct Plt Count ABG pH 7.15 L* D ABG pCO2 at Pt Temp ABG pO2 at Pt Temp Oxygen Flow Rate 100% BUN 21 H Creatinine 1.8 H Creat Clearance w eGFR 38.95 Lactic Acid 4.075 H* AST 510 H D ALT 482 H D Alkaline Phosphatase 159 H D Creatine Kinase Troponin I Urine RBC Urine WBC 11/04/16 11/04/16 11/04/16 12:30 16:00 17:00 WBC 15.8 H D RBC 5.48 Hct 49.4 H Plt Count 196 ABG pH ABG pCO2 at Pt Temp ABG pO2 at Pt Temp Oxygen Flow Rate BUN Creatinine Creat Clearance w eGFR Lactic Acid 2.773 H* AST ALT Alkaline Phosphatase Creatine Kinase Troponin I Urine RBC 65 Urine WBC 6 11/04/16 11/05/16 21:30 07:35 WBC RBC Hct Plt Count ABG pH 7.33 L ABG pCO2 at Pt Temp 57.2 H D ABG pO2 at Pt Temp 74.1 L D Oxygen Flow Rate 100% BUN Creatinine Creat Clearance w eGFR Lactic Acid AST ALT Alkaline Phosphatase Creatine Kinase 696 H Troponin I 4.71 H* D Urine RBC Urine WBC Assessment Cardiopulmonary arrest/ Anoxic encephalopathy Plan Panculture and given antibiotic Unasyn for aspiration pending c/s Ruchi BRAXTON
[2016-11-05 08:24] LABS: MCH 28.6 pg (25.7-33.7); MCHC 31.7 g/dl (32.0-35.9); MEAN CELL VOLUME 90.1 fl (80-96); MEAN PLT VOLUME 9.4 fl (7.5-11.1); PLATELET COUNT 261 K/MM3 (134-434); RDW 17.8 % (11.9-15.9); WHITE BLOOD COUNT 26.1 K/mm3 (4.0-10.0)
[2016-11-05 08:36] LABS: INR 1.42 (0.82-1.09); PROTHROMBIN TIME (PATIENT) 15.7 SEC (9.98-11.88)
[2016-11-05 08:39] LABS: ACTIVATED PTT 41.4 SECONDS (26.9-34.4)
--- NOTE | 2016-11-05 08:46 | CONS ---
DATE OF CONSULTATION: HISTORY: This is a 56-year-old white male who I am asked to see if the ICU after a cardiac arrest requiring resuscitation for asystole. The patient has an extensive cardiac history, which includes atrial flutter requiring cardioversion twice last year, most recently August 2016, congestive heart failure, pulmonary hypertension, hypertension, and chronic bilateral lower extremity edema and cellulitis. He also has sleep apnea. Presently, he is comatose on the ventilator with pupils fixed and dilated. He is hypothermic, and I assume I am asked to see him now for possible aspiration and possible underlying sepsis. No other information is currently known regarding the time leading up to his arrest. PAST MEDICAL HISTORY: Includes joint replacement with left total knee. MEDICATIONS: Prior medications unknown. ALLERGIES: Not known. SOCIAL HISTORY: Current every day smoker. Lives with significant other. 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 No recent travel. FAMILY HISTORY: Positive for prostate cancer. REVIEW OF SYSTEMS: Respiratory: Currently intubated. Cardiac: As noted in history of present illness. Gastrointestinal: No history of abdominal pain, bleeding per rectum, hematemesis. Genitourinary: Incontinent of urine. No gross hematuria. PHYSICAL EXAMINATION: Vital Signs: Temperature 95.6, pulse 106, respiratory rate 16, blood pressure 110/66, O2 oximetry 94. General: An obese male. Neck: Supple. Heart: Tachycardic. No audible murmur. Respiratory: Bilateral rhonchi. Abdomen: Distended, obese. No obvious tenderness. Bowel sounds diminished. Extremities: Lower extremity edema trace. Neurologic: Unresponsive. Pupils fixed and dilated. The white count on steroids 15.8, hemoglobin 15.9, platelets 196 with 93% polys, 4 lymphocytes, 2 monocytes. INR 1.45 initially 3.72. ABG 7.33, 57, 74 on 100% oxygen. BUN 21, creatinine 1.8, AST 510, ALT 482, alkaline phosphatase 159. TNI 2.75. Urinalysis: 65 RBCs, 6 WBCs. CAT scan of the head shows mild atrophy with no acute intracranial process. Chest x-ray from November 04 was reviewed and shows intubation with no obvious infiltrates seen. ASSESSMENT: A 56-year-old male with extensive prior cardiac history including cardioversions, hypertension, and pulmonary hypertension who presents following a cardiac arrest. Hypothermic and on low-dose dopamine. No obvious focus of infection present. The possibility of aspiration always a consideration in this setting. He has been empirically treated with antibiotics, and at this point, we will cover him for aspiration with Unasyn from the community having gotten a gram of vancomycin and a dose of Zosyn. Unasyn 1.5 g q.6. We will obtain blood, urine, and sputum cultures. Overall prognosis poor given fixed and dilated pupils, anoxic encephalopathy. JAMISON MARCELO M.D. [id number]
[2016-11-05] MEDS: AMPICILLIN NA/SULBACTAM NA 100 ML IVPB SCH ×3 (09:30→23:19)
[2016-11-05] MEDS: PANTOPRAZOLE SODIUM 40MG/100 ML IVPB SCH (09:30)
[2016-11-05] MEDS: SODIUM CHLORIDE 1,000 ML IV SCH ×2 (09:34→16:57)
--- NOTE | 2016-11-05 10:48 | PN ---
Progress Note (short form) - Note Progress Note: PULMONARY/CCM Pt seen and examined in the ICU. More respiratory effort today. Left pupil sluggish otherwise unresponsive. Last Vital Signs Temp Pulse Resp BP Pulse Ox 95 F L 66 21 95/64 98 11/05/16 05:00 11/05/16 10:00 11/05/16 10:39 11/05/16 10:00 11/05/16 10:00 Intake & Output 11/02/16 11/03/16 11/04/16 11/05/16 23:59 23:59 23:59 23:59 Intake Total 1168.1 922 Output Total 500 200 Balance 668.1 722 Weight 300 lb Gen: intubated, unresponsive Heart: RRR Lung: decreased breath sounds at the bases Abd: soft, nontender Ext: + edema CBC, BMP 11/05/16 08:00 Active Medications Aspirin (Asa -) 600 mg RC DAILY [facility] Last Admin: 11/04/16 20:40 Dose: 600 mg Chlorhexidine Gluconate (Hibiclens For Decolonization -) 1 applic TP HS [facility] Last Admin: 11/04/16 21:05 Dose: 1 applic Sodium Chloride (Normal Saline -) 1,000 mls @ 125 mls/hr IV ASDIR [facility] Last Admin: 11/05/16 09:34 Dose: 125 mls/hr Pantoprazole Sodium (Protonix 40mg Ivpb (Pre-Docked)) 100 mls @ 200 mls/hr IVPB DAILY [facility] Last Admin: 11/05/16 09:30 Dose: 200 mls/hr Ampicillin Sodium/Sulbactam Sodium (Unasyn 1.5 Gm (Pre-Docked)) 100 mls @ 200 mls/hr IVPB Q6H-IV [facility] Last Admin: 11/05/16 09:30 Dose: 200 mls/hr Levetiracetam (Keppra Injection -) 1,000 mg IVPB BID [facility] Last Admin: 11/05/16 09:33 Dose: 1,000 mg Methylprednisolone Sodium Succinate (Solu-Medrol -) 60 mg IVPB Q8H-IV [facility] Last Admin: 11/05/16 09:31 Dose: 60 mg Mupirocin (Bactroban Ointment (For Decolonization) -) 1 applic NS BID [facility] Stop: 11/09/16 21:59 Last Admin: 03/17/17 21:04 Dose: 1 applic A/P s/p Cardiopulmonary Arrest - suspect Primary respiratory arrest Acute on Chronic Hypercapneic and Hypoxic Respiratory Failure r/o Acute COPD Exacerbation r/o ARDS vs Acute Pulmonary Edema Shock - cardiogenic vs septic Acute Kidney Injury Elevated LFTs likely ischemic injury Lactic Acidosis MARLEY/OHS Morbid Obesity Atrial Fibrillation Pulmonary HTN - IVF - titrate pressor support to maintain MAP >65 - continue empiric medrol - inhaled bronchodilators - f/u cultures - continue empiric antibiotics - trend lactate, LFTs - cycle cardiac enzymes - echocardiogram - low tidal volume ventilation, titrate PEEP, FiO2 to maintain SpO2 88% if possible - poor overall prognosis for meaningful recovery given current neurologic exam but will continue supportive care - DVT/GI prophylaxis - continue ICU monitoring CCT 38'
--- NOTE | 2016-11-05 12:32 | CONSULT ---
Consult - text type - Consultation Consultation Note: Neurology The patient is a 56-year-old male with a significant past medical history of HTN , cellulitis, smoking, COPD, diabetes, sleep apnea, obesity, and presents to the emergency department for cardiac arrest this morning. As per EMS, the patient was found at home by a friend unconscious, lying immediately behind the door of his house. It is unknown exactly how long the patient was unconscious for before EMS arrived. As per EMS, the patient had two episodes of asystole, one of which occurred en route, and he was resuscitated for 25 minutes, upon which his pulse returned. The patient was given 3 epinephrine, 1 sodium bicarbonate, and 1g calcium chloride en route. Currently, remains in ICU, on mechanical ventilation. Overbreathing vent but otherwise without corneal reflexes and dilated fixed pupils. Spoke with girlfriend at bedside and family member who is nurse on the phone. Past History - Past Medical History Anemia: No Asthma: No Cancer: No Cardiac Disorders: Yes (AFIB) CVA: No COPD: Yes (PT. SNORES) CHF: No Dementia: No Diabetes: No GI Disorders: No Disorders: No HTN: Yes Hypercholesterolemia: No Liver Disease: No Suicide Attempt (Hx): No Seizures: No Thyroid Disease: No - Surgical History Orthopedic Surgery: Yes (LEFT KNEE SURGERY, BACK SURGERY-DISC REMOVED, SPINAL FUSION,) - Immunization History Immunization Up to Date: Yes - Psycho/Social/Smoking Cessation Hx Anxiety: No Suicidal Ideation: No Smoking History: Current every day smoker Have you smoked in the past 12 months: Yes Number of Cigarettes Smoked Daily: 10 'Breaking Loose' booklet given: 09/02/16 Hx Alcohol Use: Yes (occaission) Drug/Substance Use Hx: No Substance Use Type: None Hx Substance Use Treatment: No Last Vital Signs Temp Pulse Resp BP Pulse Ox 95.6 F L 116 H 14 122/67 100 11/04/16 10:37 11/04/16 11:30 11/04/16 11:30 11/04/16 11:30 11/04/16 11:30 - Physical Exam GENERAL: (+) Completely unarousable HEAD: No signs of trauma EYES: (+) Pupils dilated and fixed. sclera anicteric, conjunctiva clear ENT: Auricles normal inspection, hearing grossly normal, nares patent, oropharynx clear without exudates. Moist mucosa NECK: Normal ROM, supple. No lymphadenopathy, JVD, or masses. LUNGS: (+)Breath sounds with bagging. No wheezes, and no crackles HEART: Regular rate and rhythm, normal S1 and S2, no murmurs, rubs or gallops. No ectopy. ABDOMEN: (+) Abdomen distended. Soft, nontender, normoactive bowel sounds. No guarding, no rebound. No masses EXTREMITIES: No edema. No clubbing or cyanosis. No cords, erythema, or tenderness NEUROLOGICAL: Negative corneal, pupils fixed and dilated, not respnding to noxious stimulation SKIN: Warm, Dry, normal turgor, no rashes or lesions noted. Laboratory Results 11/04/16 11/04/16 11/04/16 11:03 11:03 11:00 INR Puncture Site ABG pH ABG pCO2 at Pt Temp ABG pO2 at Pt Temp ABG HCO3 ABG O2 Sat (Measured) ABG O2 Content ABG Base Excess Cricket Test Carboxyhemoglobin Methemoglobin O2 Delivery Device Oxygen Flow Rate Vent Mode Vent Rate Mechanical Rate PEEP Pressure Support Vent Sodium 137 Potassium 3.4 L Chloride 87 L Carbon Dioxide 29 D Anion Gap 21 H BUN 21 H Creatinine 1.8 H D Creat Clearance w eGFR 38.95 Random Glucose 257 H D Lactic Acid 4.075 H* Calcium 10.5 H Total Bilirubin 0.6 AST 402 H D ALT 364 H D Alkaline Phosphatase 129 H D Creatine Kinase Troponin I Total Protein 7.5 Albumin 3.2 L Crossmatch See Detail 11/04/16 11/04/16 11/04/16 11:00 11:00 11:00 INR 3.72 H Puncture Site Right radial ABG pH 7.15 L* D ABG pCO2 at Pt Temp 87.8 H* D ABG pO2 at Pt Temp 258.0 H* ABG HCO3 29.2 H ABG O2 Sat (Measured) 99.1 H ABG O2 Content 20.2 ABG Base Excess -2.7 L Cricket Test Positive Carboxyhemoglobin 4.8 H Methemoglobin 0.7 O2 Delivery Device Vent Oxygen Flow Rate 100% Vent Mode A/c Vent Rate 14 Mechanical Rate Yes PEEP 5.0 Pressure Support Vent 500 Sodium Potassium Chloride Carbon Dioxide Anion Gap BUN Creatinine Creat Clearance w eGFR Random Glucose Lactic Acid Calcium Total Bilirubin AST ALT Alkaline Phosphatase Creatine Kinase Cancelled Troponin I Cancelled Total Protein Albumin Crossmatch 03/17/17 10:55 INR Puncture Site ABG pH ABG pCO2 at Pt Temp ABG pO2 at Pt Temp ABG HCO3 ABG O2 Sat (Measured) ABG O2 Content ABG Base Excess Cricket Test Carboxyhemoglobin Methemoglobin O2 Delivery Device Oxygen Flow Rate Vent Mode Vent Rate Mechanical Rate PEEP Pressure Support Vent Sodium Cancelled Potassium Cancelled Chloride Cancelled Carbon Dioxide Cancelled Anion Gap Cancelled BUN Cancelled Creatinine Cancelled Creat Clearance w eGFR Random Glucose Cancelled Lactic Acid Calcium Cancelled Total Bilirubin AST ALT Alkaline Phosphatase Creatine Kinase Troponin I Total Protein Albumin Crossmatch 11/04/16 10:55 RBC 2.10 L D MCV 90.2 MCHC 32.6 RDW 17.1 H D MPV 8.3 Plan: 56-year-old male with a significant past medical history of HTN, cellulitis, smoking, COPD, diabetes, sleep apnea, obesity, and presents to the emergency department for cardiac arrest this morning. As per EMS, the patient was found at home by a friend unconscious, lying immediately behind the door of his house. It is unknown exactly how long the patient was unconscious for before EMS arrived. As per EMS, the patient had two episodes of asystole, one of which occurred en route, and he was resuscitated for 25 minutes, upon which his pulse returned. The patient was given 3 epinephrine, 1 sodium bicarbonate, and 1g calcium chloride en route. Currently, remains in ICU, on mechanical ventilation. Overbreathing vent but otherwise without corneal reflexes and dilated fixed pupils. Spoke with girlfriend at bedside and family member who is nurse on the phone. Poor prognosis Family considering DNR Palliative care to be considered Consider compassionate extubation Critcal care time 40 mins
[2016-11-05 13:08] LABS: PLATELET COMMENT2 NO CLOTTING DETECTED; PLATELET ESTIMATE ADEQUATE (NORMAL)
[2016-11-05] MEDS: MUPIROCIN 2% TOPICAL OINTMENT FOR DECOLONIZATION NS SCH ×2 (13:25→23:19)
[2016-11-05 14:12] LABS: ALBUMIN 2.6 g/dl (3.4-5.0); BILIRUBIN,TOTAL 0.4 mg/dL (0.2-1.0); CALCIUM 8.5 mg/dL (8.5-10.1); MAGNESIUM 1.9 mg/dL (1.8-2.4); PHOSPHOROUS 5.1 mg/dL (2.5-4.9); TOT PROT 7.1 g/dl (6.4-8.2)
[2016-11-05] MEDS: ASPIRIN 300 MG SUPP.RECT RC SCH (17:27)
--- NOTE | 2016-11-05 17:35 | PN ---
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
--- NOTE | 2016-11-05 19:54 | PN ---
Progress Note, Physician History of Present Illness: No events overnight Remains intubated and unresponsive - Current Medication List Current Medications: Active Medications Aspirin (Asa -) 600 mg RC DAILY ON LICENSE OF [facility] Last Admin: 11/05/16 17:27 Dose: 600 mg Chlorhexidine Gluconate (Hibiclens For Decolonization -) 1 applic TP HS ON LICENSE OF [facility] Last Admin: 11/04/16 21:05 Dose: 1 applic Sodium Chloride (Normal Saline -) 1,000 mls @ 125 mls/hr IV ASDIR [facility] Last Admin: 11/05/16 16:57 Dose: Not Given Pantoprazole Sodium (Protonix 40mg Ivpb (Pre-Docked)) 100 mls @ 200 mls/hr IVPB DAILY ON LICENSE OF [facility] Last Admin: 11/05/16 09:30 Dose: 200 mls/hr Ampicillin Sodium/Sulbactam Sodium (Unasyn 1.5 Gm (Pre-Docked)) 100 mls @ 200 mls/hr IVPB Q6H-IV [facility] Last Admin: 11/05/16 14:28 Dose: 200 mls/hr Dopamine HCl/Dextrose (Dopamine 400 Mg/D5w -) 250 mls @ 25.515 mls/hr IVPB TITR [facility]; 5 MCG/KG/MIN PRN Reason: Protocol Last Admin: 11/05/16 08:00 Dose: 25.515 mls/hr Levetiracetam (Keppra Injection -) 1,000 mg IVPB BID ON LICENSE OF [facility] Last Admin: 11/05/16 09:33 Dose: 1,000 mg Methylprednisolone Sodium Succinate (Solu-Medrol -) 60 mg IVPB Q8H-IV ON LICENSE OF [facility] Last Admin: 11/05/16 16:57 Dose: 60 mg Mupirocin (Bactroban Ointment (For Decolonization) -) 1 applic NS BID ON LICENSE OF [facility] Stop: 11/09/16 21:59 Last Admin: 11/05/16 13:25 Dose: 1 applic - Objective Vital Signs: Vital Signs Temperature 94.2 F L 11/05/16 18:00 Pulse Rate 70 11/05/16 18:00 Respiratory Rate 24 11/05/16 18:35 Blood Pressure 130/70 11/05/16 18:00 O2 Sat by Pulse Oximetry (%) 98 11/05/16 10:00 Constitutional: Yes: Other (Unresponseive to noxious stimuli) Eyes: Yes: Other (Fixed and dilated right pupil, fixe and mildly dilated left pupil) Cardiovascular: Yes: Regular Rate and Rhythm Respiratory: Yes: CTA Bilaterally Labs: CBC, BMP 11/05/16 08:00 11/05/16 13:36 INR, PTT INR 1.42 (0.82-1.09) H 11/05/16 08:00 Assessment/Plan 56 yo smoker with h/o afib/flutter on xarelto, HTN, HL, diastolic heart failure , severe pulmonary HTN, ?COPD, severe MARLEY presents s/p PEA arrest. PEA arrest - suspect pulmonary etiology. CE's only mildly elevated. EKG without evidence of ME. -Can consider repeating echo if patient has some neurologic recovery. - potassium repletion. - management of hypercapneic/hypoxic respiratory failure per pulm/critical care. Currently intubated, sedated. - Goals of care discussion Overall poor prognosis, exam concerning for irreversible brain injury.
--- NOTE | 2016-11-05 20:59 | CON.NEP ---
Consult Consult Specialty:: Nephrology Referred by:: Medicine Reason for Consultation:: Acute kidney injury - History of Present Illness Chief Complaint: Brought in unresponsive History of Present Illness: 56 year old man with a history of chronic atrial fibrillation/flutter, obstructive airway disease, COPD and Diastolic heart failure with pulmonary hypertension who brought to the hospital after he was found unresponsive. Patient is reported shukri have shovelled some snow a couple of days before this incident. Patient is intubated and renal consult is requested for declining renal function. - History Source History Provided By: Family Member, Medical Record Limitations to Obtaining History: Unresponsive - Past Medical History Cardio/Vascular: Yes: AFIB (flutter s/p cardioversion twice within last year, most recent Aug 2016), CHF (diastolic), HTN, Pulmonary Hypertension, Other ( bilateral chronic lower extremitiy cellulitis) Pulmonary: Yes: Sleep Apnea Gastrointestinal: Yes: Constipation Musculoskeletal: Yes: Other (s/p left TKR) - Past Surgical History Past Surgical History: Yes: Joint Replacement (L TKR) - Alcohol/Substance Use Hx Alcohol Use: Yes (occassional) - Smoking History Smoking history: Current every day smoker Have you smoked in the past 12 months: Yes Aproximately how many cigarettes per day: 10 - Social History ADL: Independent 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 History of Recent Travel: No Home Medications - Allergies Allergies/Adverse Reactions: Allergies Allergy/AdvReac Type Severity Reaction Status Date / Time No Known Allergies Allergy Verified 11/04/16 11:09 - Home Medications Home Medications: Ambulatory Orders Diltiazem HCl [Diltiazem 24Hr Cd] 240 mg PO BID 11/04/16 Furosemide [Lasix -] 40 mg PO DAILY 11/04/16 Methadone [Dolophine -] 10 mg PO PRN PRN 11/04/16 Metoprolol Tartrate 100 mg PO BID 11/04/16 Potassium Citrate [Potassium Citrate ER] 15 meq PO 11/04/16 Rivaroxaban [Xarelto -] 20 mg PO DAILY 11/04/16 Family Disease History - Family Disease History Family Disease History: CA: Brother (Prostate) Review of Systems Unable to obtain ROS, reason: Unresponsive Nephrology Consult - Height Height: 6 ft 2 in - Weight Weight: 300 lb - BMI Body Mass Index (BMI): 38.5 - Lab Results CBC,BMP: CBC, BMP 11/05/16 08:00 11/05/16 13:36 Anion Gap: Anion Gap Anion Gap 17 (8-16) H 11/05/16 13:36 - Physical Examination Vital Signs: Vital Signs Temperature 94.2 F L 11/05/16 18:00 Pulse Rate 70 11/05/16 18:00 Respiratory Rate 22 11/05/16 20:40 Blood Pressure 130/70 11/05/16 18:00 O2 Sat by Pulse Oximetry (%) 98 11/05/16 10:00 Constitutional: Yes: Well Nourished, No Distress Eyes: Yes: Other (Fixed.) HENT: Yes: Atraumatic, Normocephalic Cardiovascular: Yes: Pulse Irregular, Murmur Respiratory: Yes: Other (Coarse breath sound bilat) Gastrointestinal: Yes: Normal Bowel Sounds, Abdomen, Obese, Other (No palpable mass) Renal/: Yes: Marvin Present Edema: LLE: Trace, RLE: Trace Problem List - Problems (1) Cardiac arrest Code(s): I46.9 - CARDIAC ARREST, CAUSE UNSPECIFIED (2) Atrial fibrillation Code(s): I48.91 - UNSPECIFIED ATRIAL FIBRILLATION Qualifiers: Atrial fibrillation type: paroxysmal Qualified Code(s): I48.0 - Paroxysmal atrial fibrillation (3) Diastolic CHF Code(s): I50.30 - UNSPECIFIED DIASTOLIC (CONGESTIVE) HEART FAILURE Qualifiers : Qualified Code(s): I50.30 - Unspecified diastolic (congestive) heart failure (4) Obesity Code(s): E66.9 - OBESITY, UNSPECIFIED (5) Acute kidney failure with tubular necrosis Assessment/Plan: 56 year old gentleman with obesity, MARLEY, A.Fib, Heart failue and pulm HTN admitted post cardiac arrest. Acute kidney injury is most likely secondary to acute tubular injury based upon the history above. Patient does have proteinuria which might indicate underlying pre-existing nephropathy. In the interim, Continue with pressure support using normal saline as you are currently doing. Continue low dose dopamine to enhance renal perfusion. Monitor fluid intake and output hourly as feasible. Avoid the use of nephrotoxic agents and adjust all medications for decreasing EGFR, Send spot urine for protein and creatinine ratio Bed side renal sonogram if feasible for underlying renal morphology However expect the renal indices to continue upward trend until it reaches a plateau Continue with supportive care. Above discussed with the family at the bedside. Will follow. Thank you for the consultation. Code(s): N17.0 - ACUTE KIDNEY FAILURE WITH TUBULAR NECROSIS
[2016-11-05] MEDS: CHLORHEXIDINE GLUCONATE 4% CLEANSER FOR DECOLONIZATION TP SCH (23:19)
[2016-11-06] MEDS: methylPREDNISolone NA SUCC 125 MG/2 ML VIAL IVPB SCH ×3 (03:47→17:45)
[2016-11-06] MEDS: AMPICILLIN NA/SULBACTAM NA 100 ML IVPB SCH ×4 (03:48→23:13)
[2016-11-06 05:47] LABS: MCH 29.1 pg (25.7-33.7); MCHC 32.9 g/dl (32.0-35.9); MEAN CELL VOLUME 88.4 fl (80-96); MEAN PLT VOLUME 9.6 fl (7.5-11.1); PLATELET COUNT 272 K/MM3 (134-434); RDW 18.3 % (11.9-15.9); WHITE BLOOD COUNT 25.3 K/mm3 (4.0-10.0)
[2016-11-06 07:46] LABS: BASOPHIL 0.6 % (0-2.0); EOSINOPHIL 0.1 % (0-4.5)
[2016-11-06 08:09] LABS: ALLENS TEST POSITIVE; ART PUNCT SITE RIGHT RADIAL; ARTERIAL BLD GAS O2 SATURATION 86.1 % (90-98.9); ARTERIAL BLOOD GAS BASE EXCESS 2.3 meq/l (-2-2); ARTERIAL BLOOD GAS HCO3 33.1 meq/L (22-26); ARTERIAL BLOOD GAS pH 7.23 (7.35-7.45); PT. ON O2? YES
[2016-11-06 08:10] LABS: LPM/O2% 70; MECH. VENT. Y; TYPE OF O2 MECH VENT; VENT RATE 20; VT/PRESS 400
[2016-11-06 08:20] LABS: ARTERIAL BLOOD GAS PO2 63.9 mmHg (80-100)
[2016-11-06 09:02] LABS: CALCIUM 8.2 mg/dL (8.5-10.1)
[2016-11-06 09:09] LABS: ALBUMIN 2.6 g/dl (3.4-5.0); BILIRUBIN,TOTAL 0.4 mg/dL (0.2-1.0); CREATININE 3.4 mg/dL (0.7-1.3); MAGNESIUM 1.9 mg/dL (1.8-2.4); PHOSPHOROUS 7.8 mg/dL (2.5-4.9); TOT PROT 6.8 g/dl (6.4-8.2)
[2016-11-06] MEDS ORDERED: PT OWN MED DRAWER 7, Y5N ONE (09:15)
[2016-11-06] MEDS: levETIRAcetam 500 MG/5 ML INJECTION VIAL IVPB SCH ×2 (09:36→22:55)
[2016-11-06] MEDS: PANTOPRAZOLE SODIUM 40MG/100 ML IVPB SCH (09:36)
[2016-11-06] MEDS: ASPIRIN 300 MG SUPP.RECT RC SCH (09:36)
[2016-11-06] MEDS: MUPIROCIN 2% TOPICAL OINTMENT FOR DECOLONIZATION NS SCH ×2 (09:37→22:55)
--- NOTE | 2016-11-06 10:47 | PN ---
Progress Note (short form) - Note Progress Note: PULMONARY/CCM Pt seen and examined in the ICU. Remains intubated on dopamine gtt. Vented on volume assist control wtih 70% FiO2 and PEEP 16. Left pupil sluggish otherwise unresponsive. Last Vital Signs Temp Pulse Resp BP Pulse Ox 98 F 109 H 20 141/77 90 L 11/06/16 06:00 11/06/16 07:00 11/06/16 06:56 11/06/16 07:00 11/05/16 22:00 Intake & Output 11/03/16 11/04/16 11/05/16 11/06/16 23:59 23:59 23:59 23:59 Intake Total 1168.1 2948 1856 Output Total 500 900 700 Balance 668.1 2048 1156 Weight 300 lb 300 lb 278 lb Gen: intubated, unresponsive Heart: RRR Lung: decreased breath sounds at the bases Abd: increasing distention, nontender Ext: + edema CBC, BMP 11/06/16 05:00 11/06/16 05:00 Active Medications Aspirin (Asa -) 600 mg RC DAILY [facility] Last Admin: 11/06/16 09:36 Dose: 600 mg Chlorhexidine Gluconate (Hibiclens For Decolonization -) 1 applic TP HS [facility] Last Admin: 11/05/16 23:19 Dose: 1 applic Sodium Chloride (Normal Saline -) 1,000 mls @ 125 mls/hr IV ASDIR [facility] Last Admin: 11/05/16 16:57 Dose: Not Given Pantoprazole Sodium (Protonix 40mg Ivpb (Pre-Docked)) 100 mls @ 200 mls/hr IVPB DAILY [facility] Last Admin: 11/06/16 09:36 Dose: 200 mls/hr Ampicillin Sodium/Sulbactam Sodium (Unasyn 1.5 Gm (Pre-Docked)) 100 mls @ 200 mls/hr IVPB Q6H-IV [facility] Last Admin: 11/06/16 09:36 Dose: 200 mls/hr Dopamine HCl/Dextrose (Dopamine 400 Mg/D5w -) 250 mls @ 25.515 mls/hr IVPB TITR [facility]; 5 MCG/KG/MIN PRN Reason: Protocol Last Titration: 11/06/16 07:00 Dose: 3 mcg/kg/min Levetiracetam (Keppra Injection -) 1,000 mg IVPB BID [facility] Last Admin: 11/06/16 09:36 Dose: 1,000 mg Methylprednisolone Sodium Succinate (Solu-Medrol -) 60 mg IVPB Q8H-IV [facility] Last Admin: 11/06/16 09:36 Dose: 60 mg Mupirocin (Bactroban Ointment (For Decolonization) -) 1 applic NS BID [facility] Stop: 11/09/16 21:59 Last Admin: 11/06/16 09:37 Dose: 1 applic A/P s/p Cardiopulmonary Arrest - suspect Primary respiratory arrest Acute on Chronic Hypercapneic and Hypoxic Respiratory Failure r/o Acute COPD Exacerbation r/o ARDS vs Acute Pulmonary Edema Shock - cardiogenic vs septic Acute Kidney Injury Elevated LFTs likely ischemic injury Lactic Acidosis MARLEY/OHS Morbid Obesity Atrial Fibrillation Pulmonary HTN - IVF - titrate pressor support to maintain MAP >65 - continue empiric medrol - inhaled bronchodilators - f/u cultures - continue empiric antibiotics - echocardiogram - low tidal volume ventilation, titrate PEEP, FiO2 to maintain SpO2 88% if possible - poor overall prognosis for meaningful recovery given current neurologic exam but will continue supportive care - palliative care eval - DVT/GI prophylaxis - continue ICU monitoring CCT 38'
--- NOTE | 2016-11-06 11:30 | PN ---
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
--- NOTE | 2016-11-06 11:40 | PN ---
Progress Note, Physician History of Present Illness: Unresponsive on ventilator Hypotensive on pressors Temp spike 101.1 noted CXR shows new RLL pneumonia - Current Medication List Current Medications: Active Medications Aspirin (Asa -) 600 mg RC DAILY [facility] Last Admin: 11/06/16 09:36 Dose: 600 mg Chlorhexidine Gluconate (Hibiclens For Decolonization -) 1 applic TP HS [facility] Last Admin: 11/05/16 23:19 Dose: 1 applic Sodium Chloride (Normal Saline -) 1,000 mls @ 125 mls/hr IV ASDIR [facility] Last Admin: 11/05/16 16:57 Dose: Not Given Pantoprazole Sodium (Protonix 40mg Ivpb (Pre-Docked)) 100 mls @ 200 mls/hr IVPB DAILY [facility] Last Admin: 11/06/16 09:36 Dose: 200 mls/hr Ampicillin Sodium/Sulbactam Sodium (Unasyn 1.5 Gm (Pre-Docked)) 100 mls @ 200 mls/hr IVPB Q6H-IV [facility] Last Admin: 11/06/16 09:36 Dose: 200 mls/hr Dopamine HCl/Dextrose (Dopamine 400 Mg/D5w -) 250 mls @ 25.515 mls/hr IVPB TITR [facility]; 5 MCG/KG/MIN PRN Reason: Protocol Last Titration: 11/06/16 07:00 Dose: 3 mcg/kg/min Levetiracetam (Keppra Injection -) 1,000 mg IVPB BID [facility] Last Admin: 11/06/16 09:36 Dose: 1,000 mg Methylprednisolone Sodium Succinate (Solu-Medrol -) 60 mg IVPB Q8H-IV [facility] Last Admin: 11/06/16 09:36 Dose: 60 mg Mupirocin (Bactroban Ointment (For Decolonization) -) 1 applic NS BID [facility] Stop: 11/09/16 21:59 Last Admin: 11/06/16 09:37 Dose: 1 applic - Objective Vital Signs: Vital Signs Temperature 98 F 11/06/16 06:00 Pulse Rate 109 H 11/06/16 07:00 Respiratory Rate 20 11/06/16 06:56 Blood Pressure 141/77 11/06/16 07:00 O2 Sat by Pulse Oximetry (%) 90 L 11/05/16 22:00 Constitutional: Yes: No Distress, Other (Not responsive) HENT: Yes: Other (orally intubated) Cardiovascular: Yes: Regular Rate and Rhythm, Tachycardia, S1, S2 Respiratory: Yes: Mechanically Ventilated Gastrointestinal: Yes: Normal Bowel Sounds, Soft. No: Tenderness Edema: Yes Edema: LUE: 1+, RUE: 1+, LLE: 1+, RLE: 1+ Labs: CBC, BMP 11/06/16 05:00 11/06/16 05:00 INR, PTT INR 1.42 (0.82-1.09) H 11/05/16 08:00 Assessment/Plan S/P cardiopulmonary arrest Probable aspiration RLL pneumonia Possible septic shock Fever/ leukocytosis Azotemia Continue empiric Unasyn Ventilatory, hemodynamic support Prognosis guarded
--- NOTE | 2016-11-06 12:16 | PN ---
Progress Note, Physician History of Present Illness: No events overnight Weaning Dopa - Current Medication List Current Medications: Active Medications Aspirin (Asa -) 600 mg RC DAILY [facility] Last Admin: 11/06/16 09:36 Dose: 600 mg Chlorhexidine Gluconate (Hibiclens For Decolonization -) 1 applic TP HS [facility] Last Admin: 11/05/16 23:19 Dose: 1 applic Sodium Chloride (Normal Saline -) 1,000 mls @ 125 mls/hr IV ASDIR [facility] Last Admin: 11/05/16 16:57 Dose: Not Given Pantoprazole Sodium (Protonix 40mg Ivpb (Pre-Docked)) 100 mls @ 200 mls/hr IVPB DAILY [facility] Last Admin: 11/06/16 09:36 Dose: 200 mls/hr Ampicillin Sodium/Sulbactam Sodium (Unasyn 1.5 Gm (Pre-Docked)) 100 mls @ 200 mls/hr IVPB Q6H-IV [facility] Last Admin: 11/06/16 09:36 Dose: 200 mls/hr Dopamine HCl/Dextrose (Dopamine 400 Mg/D5w -) 250 mls @ 25.515 mls/hr IVPB TITR [facility]; 5 MCG/KG/MIN PRN Reason: Protocol Last Titration: 11/06/16 07:00 Dose: 3 mcg/kg/min Levetiracetam (Keppra Injection -) 1,000 mg IVPB BID [facility] Last Admin: 11/06/16 09:36 Dose: 1,000 mg Methylprednisolone Sodium Succinate (Solu-Medrol -) 60 mg IVPB Q8H-IV [facility] Last Admin: 11/06/16 09:36 Dose: 60 mg Mupirocin (Bactroban Ointment (For Decolonization) -) 1 applic NS BID [facility] Stop: 11/09/16 21:59 Last Admin: 11/06/16 09:37 Dose: 1 applic - Objective Vital Signs: Vital Signs Temperature 98.9 F 11/06/16 11:15 Pulse Rate 112 H 11/06/16 11:15 Respiratory Rate 20 11/06/16 12:03 Blood Pressure 131/67 11/06/16 11:15 O2 Sat by Pulse Oximetry (%) 89 L 11/06/16 10:00 Constitutional: Yes: Other (Intubated and unresponsive) Cardiovascular: Yes: Regular Rate and Rhythm, Tachycardia Respiratory: Yes: CTA Bilaterally Labs: CBC, BMP 11/06/16 05:00 11/06/16 05:00 INR, PTT INR 1.42 (0.82-1.09) H 11/05/16 08:00 Assessment/Plan 56 yo smoker with h/o afib/flutter on xarelto, HTN, HL, diastolic heart failure , severe pulmonary HTN, ?COPD, severe MARLEY presents s/p PEA arrest. PEA arrest - suspect pulmonary etiology. CE's only mildly elevated. EKG without evidence of NM. -Can consider repeating echo if patient has some neurologic recovery. - potassium repletion. - management of hypercapneic/hypoxic respiratory failure per pulm/critical care. Currently intubated, sedated. - Goals of care discussion pending Overall poor prognosis, exam concerning for irreversible brain injury.
[2016-11-06] MEDS: SODIUM CHLORIDE 1,000 ML IV SCH (15:03)
--- NOTE | 2016-11-06 16:06 | PN ---
Progress Note (short form) - Note Progress Note: 56 year old man with history of COPD/MARLEY/HLD/HTN admitted post cardiac arrest. Patient remains unresponsive . Increasing urine output noted. Seen in company of family members. Vitals: Vital Signs (72 hours) 11/04/16 11/04/16 11/04/16 10:37 10:40 11:00 Temperature 95.6 F L Pulse Rate 51 L 57 L 55 L Pulse Rate [ Apical] Respiratory 14 Rate Blood Pressure 68/36 77/47 Blood Pressure [Left Arm] O2 Sat by Pulse 98 91 L Oximetry (%) 11/04/16 11/04/16 11/04/16 11:15 11:18 11:19 Temperature Pulse Rate 116 H Pulse Rate [ Apical] Respiratory 14 15 Rate Blood Pressure Blood Pressure [Left Arm] O2 Sat by Pulse 100 Oximetry (%) 11/04/16 11/04/16 11/04/16 11:30 12:00 12:40 Temperature Pulse Rate 78 Pulse Rate [ 116 H 103 H Apical] Respiratory 14 14 Rate Blood Pressure 78/45 Blood Pressure 122/67 101/67 [Left Arm] O2 Sat by Pulse 100 94 L Oximetry (%) 11/04/16 11/04/16 11/04/16 12:55 13:30 13:35 Temperature 93.5 F L Pulse Rate 106 H 89 Pulse Rate [ Apical] Respiratory 14 14 16 Rate Blood Pressure 110/66 78/45 Blood Pressure [Left Arm] O2 Sat by Pulse 92 L Oximetry (%) 11/04/16 11/04/16 11/04/16 14:00 15:00 16:00 Temperature 93.2 F L 93.8 F L 94.4 F L Pulse Rate 95 H 105 H 102 H Pulse Rate [ Apical] Respiratory 14 14 20 Rate Blood Pressure 115/69 107/82 109/80 Blood Pressure [Left Arm] O2 Sat by Pulse 85 L Oximetry (%) 11/04/16 11/04/16 11/04/16 16:15 17:00 18:10 Temperature 95.2 F L 96.5 F L Pulse Rate 94 H 88 Pulse Rate [ Apical] Respiratory 20 20 20 Rate Blood Pressure 98/69 92/69 Blood Pressure [Left Arm] O2 Sat by Pulse Oximetry (%) 11/04/16 11/04/16 11/04/16 18:56 19:00 20:00 Temperature 97.2 F L 98 F Pulse Rate 74 79 Pulse Rate [ Apical] Respiratory 23 20 20 Rate Blood Pressure 100/80 112/97 Blood Pressure [Left Arm] O2 Sat by Pulse Oximetry (%) 11/04/16 11/04/16 11/04/16 21:00 22:00 22:12 Temperature 98.5 F 98.1 F Pulse Rate 83 78 Pulse Rate [ Apical] Respiratory 20 22 21 Rate Blood Pressure 113/94 123/82 Blood Pressure [Left Arm] O2 Sat by Pulse 90 L Oximetry (%) 11/04/16 11/04/16 11/05/16 22:13 23:00 00:00 Temperature 98.1 F Pulse Rate 80 75 72 Pulse Rate [ Apical] Respiratory 20 20 Rate Blood Pressure 114/76 127/90 Blood Pressure [Left Arm] O2 Sat by Pulse 95 Oximetry (%) 11/05/16 11/05/16 11/05/16 00:22 02:00 02:22 Temperature 96.9 F L Pulse Rate 68 Pulse Rate [ Apical] Respiratory 23 20 22 Rate Blood Pressure 126/91 Blood Pressure [Left Arm] O2 Sat by Pulse Oximetry (%) 11/05/16 11/05/16 11/05/16 03:00 04:00 04:49 Temperature 95 F L 95.8 F L Pulse Rate 67 52 L Pulse Rate [ Apical] Respiratory 23 Rate Blood Pressure 133/92 196/125 Blood Pressure [Left Arm] O2 Sat by Pulse Oximetry (%) 11/05/16 11/05/16 11/05/16 05:00 06:00 07:00 Temperature 95 F L Pulse Rate 84 68 76 Pulse Rate [ Apical] Respiratory Rate Blood Pressure 140/116 97/67 140/67 Blood Pressure [Left Arm] O2 Sat by Pulse Oximetry (%) 11/05/16 11/05/16 11/05/16 07:17 08:00 09:00 Temperature Pulse Rate 75 76 Pulse Rate [ Apical] Respiratory 21 23 23 Rate Blood Pressure 136/89 115/68 Blood Pressure [Left Arm] O2 Sat by Pulse 98 Oximetry (%) 11/05/16 11/05/16 11/05/16 10:00 10:39 11:00 Temperature 96 F L Pulse Rate 66 66 Pulse Rate [ Apical] Respiratory 23 21 24 Rate Blood Pressure 95/64 109/62 Blood Pressure [Left Arm] O2 Sat by Pulse 98 Oximetry (%) 11/05/16 11/05/16 11/05/16 12:00 12:05 13:00 Temperature 96.2 F L Pulse Rate 68 68 Pulse Rate [ Apical] Respiratory 27 H 27 H 24 Rate Blood Pressure 120/76 126/76 Blood Pressure [Left Arm] O2 Sat by Pulse Oximetry (%) 11/05/16 11/05/16 11/05/16 14:00 14:10 15:00 Temperature 94.2 F L 94.4 F L Pulse Rate 68 66 Pulse Rate [ Apical] Respiratory 22 29 H 24 Rate Blood Pressure 112/70 136/90 Blood Pressure [Left Arm] O2 Sat by Pulse Oximetry (%) 11/05/16 11/05/16 11/05/16 16:00 16:14 17:00 Temperature 93.5 F L Pulse Rate 68 68 Pulse Rate [ Apical] Respiratory 24 28 H 22 Rate Blood Pressure 123/84 133/69 Blood Pressure [Left Arm] O2 Sat by Pulse Oximetry (%) 11/05/16 11/05/16 11/05/16 18:00 18:35 20:00 Temperature 94.2 F L 96.9 F L Pulse Rate 70 98 H Pulse Rate [ Apical] Respiratory 24 24 22 Rate Blood Pressure 130/70 105/77 Blood Pressure [Left Arm] O2 Sat by Pulse Oximetry (%) 11/05/16 11/05/16 11/05/16 20:40 22:00 23:20 Temperature Pulse Rate 90 Pulse Rate [ Apical] Respiratory 22 18 28 H Rate Blood Pressure 108/83 Blood Pressure [Left Arm] O2 Sat by Pulse 90 L Oximetry (%) 11/06/16 11/06/16 11/06/16 00:00 02:00 02:35 Temperature 101.1 F H Pulse Rate 93 H 105 H Pulse Rate [ Apical] Respiratory 22 20 24 Rate Blood Pressure 148/87 144/73 Blood Pressure [Left Arm] O2 Sat by Pulse Oximetry (%) 11/06/16 11/06/16 11/06/16 03:00 04:40 06:00 Temperature 98 F Pulse Rate 92 H 100 H Pulse Rate [ Apical] Respiratory 22 23 20 Rate Blood Pressure 145/79 147/80 Blood Pressure [Left Arm] O2 Sat by Pulse Oximetry (%) 11/06/16 11/06/1611/06/17 06:56 07:00 08:00 Temperature 99.0 F Pulse Rate 109 H 104 H Pulse Rate [ Apical] Respiratory 20 20 Rate Blood Pressure 141/77 151/78 Blood Pressure [Left Arm] O2 Sat by Pulse Oximetry (%) 11/06/16 11/06/16 11/06/16 10:00 11:00 11:15 Temperature 98.7 F 99.0 F 98.9 F Pulse Rate 111 H 111 H 112 H Pulse Rate [ Apical] Respiratory 20 20 20 Rate Blood Pressure 139/72 139/72 131/67 Blood Pressure [Left Arm] O2 Sat by Pulse 89 L Oximetry (%) 11/06/16 11/06/16 11/06/16 12:03 12:16 13:00 Temperature 99.9 F H Pulse Rate 109 H 124 H Pulse Rate [ Apical] Respiratory 20 20 Rate Blood Pressure 141/70 132/74 Blood Pressure [Left Arm] O2 Sat by Pulse Oximetry (%) 11/06/16 11/06/16 11/06/16 14:00 14:05 15:00 Temperature 101.3 F H Pulse Rate 124 H 126 H Pulse Rate [ Apical] Respiratory 20 20 20 Rate Blood Pressure 131/66 125/68 Blood Pressure [Left Arm] O2 Sat by Pulse Oximetry (%) Heent: NC/AT, pupils are not reactive with no appreciable corneal reflex Neck: No JVD Lungs; dullness at the bases. Heart: S1 S2 Regular, no gallop Abd: Obese, distended, No palpable tenderness Ext: Trace bipedal edema Neuro: Unresponsive to verbal or tactile stimuli Labs: Laboratory Results - last 24 hr 11/05/16 11/06/16 11/06/16 16:51 05:00 05:00 WBC 25.3 H RBC 5.41 Hgb 15.7 Hct 47.8 MCV 88.4 MCHC 32.9 RDW 18.3 H Plt Count 272 MPV 9.6 Neutrophils % 92.0 H Lymphocytes % 1.5 L D Monocytes % 5.8 Eosinophils % 0.1 Basophils % 0.6 Band Neutrophils 0.0 D Puncture Site ABG pH ABG pCO2 at Pt Temp ABG pO2 at Pt Temp ABG HCO3 ABG O2 Sat (Measured) ABG O2 Content ABG Base Excess Cricket Test O2 Delivery Device Oxygen Flow Rate Vent Mode Vent Rate Mechanical Rate PEEP Pressure Support Vent Sodium 141 Potassium 3.8 Chloride 93 L Carbon Dioxide 31 Anion Gap 17 H BUN 59 H D Creatinine 3.4 H Creat Clearance w eGFR 18.70 POC Glucometer [phone] Random Glucose 175 H Calcium 8.2 L Phosphorus 7.8 H D Magnesium 1.9 Total Bilirubin 0.4 AST 99 H D ALT 201 H D Alkaline Phosphatase 97 Total Protein 6.8 Albumin 2.6 L 11/06/16 07:45 WBC RBC Hgb Hct MCV MCHC RDW Plt Count MPV Neutrophils % Lymphocytes % Monocytes % Eosinophils % Basophils % Band Neutrophils Puncture Site Right radial ABG pH 7.23 L* ABG pCO2 at Pt Temp 81.8 H* D ABG pO2 at Pt Temp 63.9 L ABG HCO3 33.1 H ABG O2 Sat (Measured) 86.1 L ABG O2 Content 19.2 ABG Base Excess 2.3 H Cricket Test Positive O2 Delivery Device Mech vent Oxygen Flow Rate 70 Vent Mode Ac Vent Rate 20 Mechanical Rate Y PEEP 5.0 Pressure Support Vent 400 Sodium Potassium Chloride Carbon Dioxide Anion Gap BUN Creatinine Creat Clearance w eGFR POC Glucometer Random Glucose Calcium Phosphorus Magnesium Total Bilirubin AST ALT Alkaline Phosphatase Total Protein Albumin A/P: 56 year old female admitted with cardiac arrest and acute kidney injury secondary to acute tubular injury. Continue with the current management. Renal function appears to be stabilizing with modest increase in serum creatinine. Overall prognosis is guarded. Will follow. Problem List - Problems (1) Cardiac arrest Code(s): I46.9 - CARDIAC ARREST, CAUSE UNSPECIFIED (2) Atrial fibrillation Code(s): I48.91 - UNSPECIFIED ATRIAL FIBRILLATION Qualifiers: Atrial fibrillation type: paroxysmal Qualified Code(s): I48.0 - Paroxysmal atrial fibrillation (3) Diastolic CHF Code(s): I50.30 - UNSPECIFIED DIASTOLIC (CONGESTIVE) HEART FAILURE Qualifiers : Qualified Code(s): I50.30 - Unspecified diastolic (congestive) heart failure (4) Obesity Code(s): E66.9 - OBESITY, UNSPECIFIED (5) Acute kidney failure with tubular necrosis Code(s): N17.0 - ACUTE KIDNEY FAILURE WITH TUBULAR NECROSIS
[2016-11-06] MEDS ORDERED: ACETAMINOPHEN 650 MG SUPP.RECT PR ONE (17:30)
[2016-11-06] MEDS: DOPAMINE 400 MG/D5W - 250 ML IVPB SCH (17:43)
[2016-11-06 22:03] LABS: ARTERIAL BLD GAS O2 SATURATION 89.4 % (90-98.9); ARTERIAL BLOOD GAS BASE EXCESS 0.9 meq/l (-2-2); ARTERIAL BLOOD GAS HCO3 30.3 meq/L (22-26); ARTERIAL BLOOD GAS PO2 75.9 mmHg (80-100); ARTERIAL BLOOD GAS pH 7.21 (7.35-7.45)
[2016-11-06 22:05] LABS: ART PUNCT SITE RIGHT RADIAL; LPM/O2% 65%; MECH. VENT. YES; PT. ON O2? YES; TYPE OF O2 MEC.VENT; VENT RATE 28; VT/PRESS 400
[2016-11-06] MEDS: CHLORHEXIDINE GLUCONATE 4% CLEANSER FOR DECOLONIZATION TP SCH (23:09)
[2016-11-06] MEDS ORDERED: ACETAMINOPHEN 1000 MG/100 ML VIAL (NON FORMULARY) IVPB ONE (23:40)
[2016-11-07] MEDS: methylPREDNISolone NA SUCC 125 MG/2 ML VIAL IVPB SCH ×3 (02:45→17:27)
[2016-11-07] MEDS: AMPICILLIN NA/SULBACTAM NA 100 ML IVPB SCH (03:31)
[2016-11-07 05:56] LABS: BASOPHIL 0.8 % (0-2.0); EOSINOPHIL 0.6 % (0-4.5); MCH 29.2 pg (25.7-33.7); MCHC 32.8 g/dl (32.0-35.9); MEAN CELL VOLUME 88.9 fl (80-96); MEAN PLT VOLUME 9.7 fl (7.5-11.1); NEUTROPHILS 90.6 % (42.8-82.8); PLATELET COUNT 203 K/MM3 (134-434); RDW 18.2 % (11.9-15.9); WHITE BLOOD COUNT 16.6 K/mm3 (4.0-10.0)
[2016-11-07 06:20] LABS: ALBUMIN 2.4 g/dl (3.4-5.0); CALCIUM 7.6 mg/dL (8.5-10.1); MAGNESIUM 1.9 mg/dL (1.8-2.4)
[2016-11-07 06:23] LABS: BILIRUBIN,TOTAL 0.5 mg/dL (0.2-1.0); CREATININE 4.5 mg/dL (0.7-1.3); PHOSPHOROUS 6.9 mg/dL (2.5-4.9); TOT PROT 6.1 g/dl (6.4-8.2)
[2016-11-07 07:26] LABS: ARTERIAL BLOOD GAS BASE EXCESS 3.2 meq/l (-2-2); ARTERIAL BLOOD GAS HCO3 30.1 meq/L (22-26); ARTERIAL BLOOD GAS PO2 60.2 mmHg (80-100); ARTERIAL BLOOD GAS pH 7.34 (7.35-7.45)
[2016-11-07 07:27] LABS: ALLENS TEST POSITIVE; ART PUNCT SITE RIGHT RADIAL; ARTERIAL BLD GAS O2 SATURATION 88.4 % (90-98.9); LPM/O2% 70%; MECH. VENT. Y; PT. ON O2? YES; TYPE OF O2 VENT; VENT RATE 28; VT/PRESS 400
--- NOTE | 2016-11-07 08:23 | PN ---
Progress Note, Physician Chief Complaint: ID Spiking fevers 104 on high doses steroids !! Negative cultures While at risk for aspiration difficult to discern on chest xray in this 300lb male with portable film. On Unasyn day 2 [facility] should provide reasonable coverage for aspiration. Comatose on the vent - Current Medication List Current Medications: Active Medications Aspirin (Asa -) 600 mg RC DAILY [facility] Last Admin: 11/06/16 09:36 Dose: 600 mg Chlorhexidine Gluconate (Hibiclens For Decolonization -) 1 applic TP HS [facility] Last Admin: 11/06/16 23:09 Dose: 1 applic Sodium Chloride (Normal Saline -) 1,000 mls @ 125 mls/hr IV ASDIR [facility] Last Admin: 11/06/16 15:03 Dose: 125 mls/hr Pantoprazole Sodium (Protonix 40mg Ivpb (Pre-Docked)) 100 mls @ 200 mls/hr IVPB DAILY [facility] Last Admin: 11/06/16 09:36 Dose: 200 mls/hr Ampicillin Sodium/Sulbactam Sodium (Unasyn 1.5 Gm (Pre-Docked)) 100 mls @ 200 mls/hr IVPB Q6H-IV [facility] Last Admin: 11/07/16 03:31 Dose: 200 mls/hr Dopamine HCl/Dextrose (Dopamine 400 Mg/D5w -) 250 mls @ 25.515 mls/hr IVPB TITR [facility]; 5 MCG/KG/MIN PRN Reason: Protocol Last Admin: 11/06/16 17:43 Dose: Not Given Levetiracetam (Keppra Injection -) 1,000 mg IVPB BID [facility] Last Admin: 11/06/16 22:55 Dose: 1,000 mg Methylprednisolone Sodium Succinate (Solu-Medrol -) 60 mg IVPB Q8H-IV [facility] Last Admin: 11/07/16 02:45 Dose: 60 mg Mupirocin (Bactroban Ointment (For Decolonization) -) 1 applic NS BID [facility] Stop: 11/09/16 21:59 Last Admin: 11/06/16 22:55 Dose: 1 applic - Objective Vital Signs: Vital Signs Temperature 102.1 F H 11/07/16 06:00 Pulse Rate 131 H 11/07/16 06:00 Respiratory Rate 28 H 11/07/16 06:41 Blood Pressure 167/88 11/07/16 06:00 O2 Sat by Pulse Oximetry (%) 90 L 11/06/16 22:00 Constitutional: Yes: Severe Distress, Obese Cardiovascular: Yes: Tachycardia, S1, S2. No: Murmur Respiratory: Yes: WNL, Regular, CTA Bilaterally. No: Rhonchi Gastrointestinal: Yes: Soft, Distention. No: Tenderness, Tenderness, Rebound Labs: CBC, BMP 11/07/16 05:00 11/07/16 05:00 INR, PTT INR 1.42 (0.82-1.09) H 11/05/16 08:00 Problem List - Problems (1) Anoxic brain injury Code(s): G93.1 - ANOXIC BRAIN DAMAGE, NOT ELSEWHERE CLASSIFIED (2) Cardiac arrest Code(s): I46.9 - CARDIAC ARREST, CAUSE UNSPECIFIED (3) Acute kidney failure with tubular necrosis Code(s): N17.0 - ACUTE KIDNEY FAILURE WITH TUBULAR NECROSIS (4) Cerebral edema due to anoxia Code(s): G93.6 - CEREBRAL EDEMA R09.02 - HYPOXEMIA (5) Atrial fibrillation Code(s): I48.91 - UNSPECIFIED ATRIAL FIBRILLATION Qualifiers: Atrial fibrillation type: paroxysmal Qualified Code(s): I48.0 - Paroxysmal atrial fibrillation (6) Fever Code(s): R50.9 - FEVER, UNSPECIFIED Assessment/Plan Microbiology 11/04/16 16:00 Urine - Urine Marvin Urine Culture - Final NO GROWTH OBTAINED 11/04/16 10:55 Blood - Peripheral Venous Blood Culture - Preliminary NO GROWTH OBTAINED AFTER 48 HOURS, INCUBATION TO CONTINUE FOR 3 DAYS. 11/04/16 10:55 Blood - Peripheral Venous Blood Culture - Preliminary NO GROWTH OBTAINED AFTER 48 HOURS, INCUBATION TO CONTINUE FOR 3 DAYS. Laboratory Tests 11/05/16 11/06/16 11/07/16 08:00 05:00 05:00 WBC 26.1 H D 25.3 H 16.6 H D Hgb 13.5 D Hct 41.3 Plt Count 203 D BUN Creatinine Creat Clearance w eGFR AST ALT Alkaline Phosphatase 11/07/16 05:00 WBC Hgb Hct Plt Count BUN 92 H D Creatinine 4.5 H D Creat Clearance w eGFR 13.53 AST 84 H ALT 116 H D Alkaline Phosphatase 86 Assessment Cardiopulmonary arrest Anoxic encephalopathy Acute renal failure Fever ? etiology Could be central in origin but at risk for apsiration PNA Plan Send sputum c/s Ertepenem 500mg daily Stop Unasyn If fevers persists over the next 48hours will advise stop all antibiotics as I suspect central fever then more likely Critical care time spent with this patient 38 minutes Ruchi BRAXTON
--- NOTE | 2016-11-07 08:59 | PN ---
Progress Note, Physician Chief Complaint: s/p card.pulm arrest History of Present Illness: remains intubated in ICU - Current Medication List Current Medications: Active Medications Aspirin (Asa -) 600 mg RC DAILY [facility] Last Admin: 11/06/16 09:36 Dose: 600 mg Chlorhexidine Gluconate (Hibiclens For Decolonization -) 1 applic TP HS [facility] Last Admin: 11/06/16 23:09 Dose: 1 applic Sodium Chloride (Normal Saline -) 1,000 mls @ 125 mls/hr IV [facility] Last Admin: 11/06/16 15:03 Dose: 125 mls/hr Pantoprazole Sodium (Protonix 40mg Ivpb (Pre-Docked)) 100 mls @ 200 mls/hr IVPB DAILY [facility] Last Admin: 11/06/16 09:36 Dose: 200 mls/hr Ertapenem 0.5 gm/ Sodium (Chloride) 50 mls @ 50 mls/hr IVPB DAILY [facility] PRN Reason: Protocol Levetiracetam (Keppra Injection -) 1,000 mg IVPB BID [facility] Last Admin: 11/06/16 22:55 Dose: 1,000 mg Methylprednisolone Sodium Succinate (Solu-Medrol -) 60 mg IVPB Q8H-IV [facility] Last Admin: 11/07/16 02:45 Dose: 60 mg Mupirocin (Bactroban Ointment (For Decolonization) -) 1 applic NS BID [facility] Stop: 11/09/16 21:59 Last Admin: 11/06/16 22:55 Dose: 1 applic - Objective Vital Signs: Vital Signs Temperature 102.1 F H 11/07/16 06:00 Pulse Rate 131 H 11/07/16 08:00 Respiratory Rate 26 H 11/07/16 08:00 Blood Pressure 171/90 11/07/16 08:00 O2 Sat by Pulse Oximetry (%) 90 L 11/06/16 22:00 Constitutional: Yes: Obese Neck: Yes: Trachea Midline Cardiovascular: Yes: Regular Rate and Rhythm Respiratory: Yes: Other (scattered wheezing) Gastrointestinal: Yes: Normal Bowel Sounds, Abdomen, Obese Edema: LLE: Trace, RLE: Trace Peripheral Pulses WNL: Yes Neurological: Yes: Other (unresponsive, resp. rate on vent. set at 28-not overbreathing absent corneal reflexes, pupils fixed, dilated R>L) Labs: CBC, BMP 11/07/16 05:00 11/07/16 05:00 INR, PTT INR 1.42 (0.82-1.09) H 11/05/16 08:00 - ....Imaging Chest X-ray: Report Reviewed Problem List - Problems (1) Cardiac arrest Code(s): I46.9 - CARDIAC ARREST, CAUSE UNSPECIFIED (2) Atrial fibrillation Code(s): I48.91 - UNSPECIFIED ATRIAL FIBRILLATION Qualifiers: Atrial fibrillation type: paroxysmal Qualified Code(s): I48.0 - Paroxysmal atrial fibrillation (3) Congestive heart failure Code(s): I50.9 - HEART FAILURE, UNSPECIFIED Qualifiers: Congestive heart failure type: diastolic Congestive heart failure chronicity: chronic Qualified Code(s): I50.32 - Chronic diastolic ( congestive) heart failure (4) Diastolic CHF Code(s): I50.30 - UNSPECIFIED DIASTOLIC (CONGESTIVE) HEART FAILURE Qualifiers : Qualified Code(s): I50.30 - Unspecified diastolic (congestive) heart failure (5) Hypertension Code(s): I10 - ESSENTIAL (PRIMARY) HYPERTENSION Qualifiers: Hypertension type: essential hypertension Qualified Code(s): I10 - Essential (primary) hypertension (6) MARLEY (obstructive sleep apnea) Code(s): G47.33 - OBSTRUCTIVE SLEEP APNEA (ADULT) (PEDIATRIC) (7) Acute kidney failure with tubular necrosis Code(s): N17.0 - ACUTE KIDNEY FAILURE WITH TUBULAR NECROSIS (8) Anoxic brain injury Code(s): G93.1 - ANOXIC BRAIN DAMAGE, NOT ELSEWHERE CLASSIFIED (9) Cerebral edema due to anoxia Code(s): G93.6 - CEREBRAL EDEMA R09.02 - HYPOXEMIA (10) Fever Code(s): R50.9 - FEVER, UNSPECIFIED Qualifiers: Fever type: unspecified Qualified Code(s): R50.9 - Fever, unspecified Assessment/Plan poor prognosis palliative care f/up regarding future care fever likely central would taper steroids neuro f/up to assess brain function ?apnea testing cont present care
[2016-11-07] MEDS: PANTOPRAZOLE SODIUM 40MG/100 ML IVPB SCH (09:52)
[2016-11-07] MEDS: levETIRAcetam 500 MG/5 ML INJECTION VIAL IVPB SCH ×2 (09:52→21:40)
[2016-11-07] MEDS: SODIUM CHLORIDE 1,000 ML IV SCH ×2 (09:53→17:27)
[2016-11-07] MEDS: MUPIROCIN 2% TOPICAL OINTMENT FOR DECOLONIZATION NS SCH ×2 (09:53→21:40)
--- NOTE | 2016-11-07 10:18 | PN ---
Progress Note, Physician Chief Complaint: PEA arrest History of Present Illness: intubated, not responsive - Current Medication List Current Medications: Active Medications Aspirin (Asa -) 600 mg RC DAILY [facility] Last Admin: 11/06/16 09:36 Dose: 600 mg Chlorhexidine Gluconate (Hibiclens For Decolonization -) 1 applic TP HS [facility] Last Admin: 11/06/16 23:09 Dose: 1 applic Sodium Chloride (Normal Saline -) 1,000 mls @ 125 mls/hr IV ASDIR [facility] Last Admin: 11/07/16 09:53 Dose: 125 mls/hr Pantoprazole Sodium (Protonix 40mg Ivpb (Pre-Docked)) 100 mls @ 200 mls/hr IVPB DAILY [facility] Last Admin: 11/07/16 09:52 Dose: 200 mls/hr Dopamine HCl/Dextrose (Dopamine 400 Mg/D5w -) 250 mls @ 25.515 mls/hr IVPB TITR [facility]; 5 MCG/KG/MIN PRN Reason: Protocol Last Admin: 11/06/16 17:43 Dose: Not Given Ertapenem 0.5 gm/ Sodium (Chloride) 50 mls @ 50 mls/hr IVPB DAILY [facility] PRN Reason: Protocol Levetiracetam (Keppra Injection -) 1,000 mg IVPB BID [facility] Last Admin: 11/07/16 09:52 Dose: 1,000 mg Methylprednisolone Sodium Succinate (Solu-Medrol -) 60 mg IVPB Q8H-IV [facility] Last Admin: 11/07/16 09:52 Dose: 60 mg Mupirocin (Bactroban Ointment (For Decolonization) -) 1 applic NS BID [facility] Stop: 11/09/16 21:59 Last Admin: 11/07/16 09:53 Dose: 1 applic - Objective Vital Signs: Vital Signs Temperature 102.1 F H 11/07/16 06:00 Pulse Rate 131 H 11/07/16 08:00 Respiratory Rate 26 H 11/07/16 08:00 Blood Pressure 171/90 11/07/16 08:00 O2 Sat by Pulse Oximetry (%) 90 L 11/06/16 22:00 Constitutional: Yes: No Distress, Calm, Obese Eyes: No: Sclera Icterus HENT: No: Nasal Congestion Cardiovascular: Yes: Regular Rate and Rhythm, S1, S2, Other (PMI non diplaced). No: JVD (tds exam ++), Gallop, Murmur Respiratory: Yes: CTA Bilaterally (anteriorly). No: Accessory Muscle Use, Rales , Wheezes Gastrointestinal: Yes: Normal Bowel Sounds, Soft. No: Tenderness Musculoskeletal: Yes: Other (No kyphosis) Extremities: No: Cold Edema: Yes (thigs (SCDs bilat)) Integumentary: No: Jaundice Neurological: No: Alert, Oriented (x3), Seizure Psychiatric: No: Agitated Labs: CBC, BMP 11/07/16 05:00 11/07/16 05:00 INR, PTT INR 1.42 (0.82-1.09) H 11/05/16 08:00 - ....Imaging EKG: Other (tele: sinus tach) Assessment/Plan 08/2016 LUZ MARIA: No thrombus. Nl lv size/fn. RV dilated, nl func. Mod TR. 2015 echo: Mild LVH. Nl LV size and function. E to A reversal. Mild RV dilation. RVSP 31 + RAP, mild pHTN. Mild asc ao dilation 2014 echo: Nl LV/RV. mild-mod TR. RVSP:>60 2014 persantine stress MPI: no EKG changes. Nl perf. nl EF 56 yo smoker with h/o afib/flutter on xarelto, HTN, HL, diastolic heart failure , severe pulmonary HTN, ?COPD, severe MARLEY presents s/p PEA arrest. PEA arrest - suspect pulmonary etiology. CE's only mildly elevated. EKG without evidence of RI. -Can consider repeating echo if patient has some neurologic recovery. - potassium repletion. -? anoxic encephalopathy - management of hypercapneic/hypoxic respiratory failure per pulm/critical care. Currently intubated, sedated. - Goals of care discussion pending PNA (RLL), fever - per crit care Symptomatic paroxysmal atrial flutter/ fibrillation --> currently in SR - Followed by [facility] [place] [facility] and is a candidate for flutter/fib ablation. However, dr. avila recommended delaying until he was able to improve underlying risk factors 's (ie. weight loss, MARLEY treatment) - on xarelto at home--held here as pt npo - d/w'd crit care dr chamorro--highly likely signif anoxic enceph here and poor prognosis for recovery--hopefully definitive disc'n to take place with family today re: goals of care--will hold off on UFH until plan is clarified - holding rate control meds (outpatient regimen diltiazem 240 mg BID, metoprolol 100 mg BID) while on pressors diastolic dysfunction/chronic LE edema with recurrent cellulitis and LE wounds. - had been recovering from acute exacerbation in june in setting of AF with RVR. -Had not yet returned to euvolemia and was undergoing active uptitration of diuretic regimen over past few months. Torsemide last increased the first week of october and currently with significant improvement in LE edema. - Appears euvolemic, holding torsemide, ok for IVF support if needed severe (most recently mild) pulmonary hypertension with RV enlargement - + severe marley with baseline supine hypoxemia and superimposed desaturations/ obesity hypoventilation. Had recently followed up on BIPAP titration, but not yet had successful titration study. - also with underlying pulmonary disease (chronic hypercapnea), PFT's this month described as severe airway obstruction but with reduced lung volumes. Interpreted as severe restriction. - Management of current hypercapneic/hypoxic respiratory failure per pulm/crit care. acute on chronic hypoxic/hypercapneic RF: -? pna, ? a.e. copd -per pulm/crit care TOO: -likely ATN from hypoperfusion -renal fxn worsening, severely -per crit care +/- renal hi AST/LT: -likely shock liver from hypoperfusion -improving lab trend HTN with LVH - on dopamine here initially--now hypertensive - off pressors now HL - holding statin while npo est crit care time 35min
[2016-11-07] MEDS: ERTAPENEM SODIUM 0.5 GM in SODIUM CHLORIDE 50 ML IVPB SCH (11:40)
--- NOTE | 2016-11-07 12:42 | PN ---
Teaching Attending Note Name of Resident: [employer] [facility] ATTENDING PHYSICIAN STATEMENT I saw and evaluated the patient. I reviewed the resident's note and discussed the case with the resident. I agree with the resident's findings and plan as documented. SUBJECTIVE: Pt seen and examined in the ICU. Remains unresponsive, +spontaneous breaths. Persistent fevers. OBJECTIVE: Last Vital Signs Temp Pulse Resp BP Pulse Ox 102 F H 133 H 16 169/91 89 L 11/07/16 10:00 11/07/16 11:00 11/07/16 12:32 11/07/16 11:00 11/07/16 12:32 Intake & Output 11/04/16 11/05/16 11/06/16 11/07/16 23:59 23:59 23:59 23:59 Intake Total 1168.1 2948 4312 1262.5 Output Total 953 755 6419 200 Balance 668.1 2048 2912 1062.5 Weight 300 lb 300 lb 278 lb 276 lb 9.6 oz Gen: intubated, unresponsive Heart: tachycardic, regular Lung: scattered rhonchi Abd: softly distended, nontender Ext: + edema CBC, BMP 11/07/16 05:00 11/07/16 05:00 Active Medications Aspirin (Asa -) 600 mg RC DAILY SUSHANT Last Admin: 11/06/16 09:36 Dose: 600 mg Chlorhexidine Gluconate (Hibiclens For Decolonization -) 1 applic TP HS [facility] Last Admin: 11/06/16 23:09 Dose: 1 applic Sodium Chloride (Normal Saline -) 1,000 mls @ 125 mls/hr IV ASDIR SUSHANT Last Admin: 11/07/16 09:53 Dose: 125 mls/hr Pantoprazole Sodium (Protonix 40mg Ivpb (Pre-Docked)) 100 mls @ 200 mls/hr IVPB DAILY SUSHANT Last Admin: 11/07/16 09:52 Dose: 200 mls/hr Dopamine HCl/Dextrose (Dopamine 400 Mg/D5w -) 250 mls @ 25.515 mls/hr IVPB TITR SUSHANT; 5 MCG/KG/MIN PRN Reason: Protocol Last Admin: 11/06/16 17:43 Dose: Not Given Ertapenem 0.5 gm/ Sodium (Chloride) 50 mls @ 50 mls/hr IVPB DAILY SUSHANT PRN Reason: Protocol Last Admin: 11/07/16 11:40 Dose: 50 mls/hr Levetiracetam (Keppra Injection -) 1,000 mg IVPB BID [facility] Last Admin: 11/07/16 09:52 Dose: 1,000 mg Methylprednisolone Sodium Succinate (Solu-Medrol -) 60 mg IVPB Q8H-IV SUSHANT Last Admin: 11/07/16 09:52 Dose: 60 mg Mupirocin (Bactroban Ointment (For Decolonization) -) 1 applic NS BID [facility] Stop: 11/09/16 21:59 Last Admin: 11/07/16 09:53 Dose: 1 applic ASSESSMENT AND PLAN: s/p Cardiopulmonary Arrest - suspect Primary respiratory arrest Acute on Chronic Hypercapneic and Hypoxic Respiratory Failure r/o Acute COPD Exacerbation r/o ARDS vs Acute Pulmonary Edema Shock - cardiogenic vs septic Acute Kidney Injury Elevated LFTs likely ischemic injury Lactic Acidosis MARLEY/OHS Morbid Obesity Atrial Fibrillation Pulmonary HTN Suspect Central Fevers - IVF - titrate pressor support to maintain MAP >65 - decrease medrol to 40mg q12h - inhaled bronchodilators - f/u cultures - continue empiric antibiotics - echocardiogram - f/u EEG - continue empiric antiepileptics - low tidal volume ventilation, titrate PEEP, FiO2 to maintain SpO2 88% if possible - poor overall prognosis for meaningful recovery given current neurologic exam but will continue supportive care - palliative care eval - DVT/GI prophylaxis - continue ICU monitoring - discussed with mother and cousin of pt, they understand prognosis and are leaning towards compassionate extubation pending above studies
--- NOTE | 2016-11-07 14:03 | PN ---
Progress Note (short form) - Note Progress Note: Neurology follow up 56-year-old male with a significant past medical history of HTN, cellulitis, smoking, COPD, diabetes, sleep apnea, obesity, and presents to the emergency department for cardiac arrest. As per EMS, the patient was found at home by a friend unconscious, lying immediately behind the door of his house. It is unknown exactly how long the patient was unconscious for before EMS arrived. As per EMS, the patient had two episodes of asystole, one of which occurred en route, and he was resuscitated for 25 minutes, upon which his pulse returned. The patient was given 3 epinephrine, 1 sodium bicarbonate, and 1g calcium chloride en route. CT head 11/04 shows no acute hemorrhage Most recent temperature 102 EEG complete this morning, pending In ICU, remains intubated, without spontaneous movement, movement to noxious stim, corneal or pupillary response Past History - Past Medical History Anemia: No Asthma: No Cancer: No Cardiac Disorders: Yes (AFIB) CVA: No COPD: Yes (PT. SNORES) CHF: No Dementia: No Diabetes: No GI Disorders: No Disorders: No HTN: Yes Hypercholesterolemia: No Liver Disease: No Suicide Attempt (Hx): No Seizures: No Thyroid Disease: No - Surgical History Orthopedic Surgery: Yes (LEFT KNEE SURGERY, BACK SURGERY-DISC REMOVED, SPINAL FUSION,) - Immunization History Immunization Up to Date: Yes - Psycho/Social/Smoking Cessation Hx Anxiety: No Suicidal Ideation: No Smoking History: Current every day smoker Have you smoked in the past 12 months: Yes Number of Cigarettes Smoked Daily: 10 'Breaking Loose' booklet given: 09/02/16 Hx Alcohol Use: Yes (occaission) Drug/Substance Use Hx: No Substance Use Type: None Hx Substance Use Treatment: No - Physical Exam GENERAL: (+) Completely unarousable HEAD: No signs of trauma EYES: (+) Pupils dilated and fixed. sclera anicteric, conjunctiva clear ENT: Auricles normal inspection, hearing grossly normal, nares patent, oropharynx clear without exudates. Moist mucosa NECK: Normal ROM, supple. No lymphadenopathy, JVD, or masses. LUNGS: (+)Breath sounds with bagging. No wheezes, and no crackles HEART: Regular rate and rhythm, normal S1 and S2, no murmurs, rubs or gallops. No ectopy. ABDOMEN: (+) Abdomen distended. Soft, nontender, normoactive bowel sounds. No guarding, no rebound. No masses EXTREMITIES: No edema. No clubbing or cyanosis. No cords, erythema, or tenderness NEUROLOGICAL: Negative corneal, pupils fixed and dilated R 5mm, L 3mm, not respnding to noxious stimulation SKIN: Warm, Dry, normal turgor, no rashes or lesions noted. Plan: 56-year-old male with a significant past medical history of HTN, cellulitis, smoking, COPD, diabetes, sleep apnea, obesity, and presents to the emergency department for cardiac arrest. As per EMS, the patient was found at home by a friend unconscious, lying immediately behind the door of his house. It is unknown exactly how long the patient was unconscious for before EMS arrived. As per EMS, the patient had two episodes of asystole, one of which occurred en route, and he was resuscitated for 25 minutes, upon which his pulse returned. The patient was given 3 epinephrine, 1 sodium bicarbonate, and 1g calcium chloride en route. CT head 11/04 shows no acute hemorrhage Most recent temperature 102 EEG complete this morning, pending Poor prognosis- no spontaneous movement, no withdrawal to noxious stimuli, no pupillary or corneal response. Consider compassionate extubation Continue palliative care discussions
--- NOTE | 2016-11-07 14:12 | PN ---
Physical Exam: SUBJECTIVE: Patient seen and examined at bedside in the ICU. Patient is still intubated and on mechanical ventilation. OBJECTIVE: Intubated on mechanical ventilation Vent settings: AC, RR 28, TV 400, FiO2 70, PEEP 10 Vital Signs Period Temp Pulse Resp BP Sys/Galvez Pulse Ox Last 24 Hr 101.3 F-104 F 125-133 16-28 125-171/66-91 89-92 GENERAL: Intubated, unresponsive to all stimuli, off pressor on cooling blanket HEAD: AT, NC EYES: B/L less dilated pupils, non-reactive, no corneal reflex LUNGS: B/L rhonchi HEART: Tachycardic, regular rhythm, S1 and S2, no murmur, rub ABDOMEN: Soft, obese, mild distention, EXTREMITIES: Cold, weak pulses, no edema. ABG Results ABG pH 7.34 (7.35-7.45) L 11/07/16 07:15 ABG pCO2 at Pt Temp 57.6 mmHg (35-45) H D 11/07/16 07:15 ABG pO2 at Pt Temp 60.2 mmHg (80-100) L D 11/07/16 07:15 ABG HCO3 30.1 meq/L (22-26) H 11/07/16 07:15 ABG O2 Sat (Measured) 88.4 % (90-98.9) L 11/07/16 07:15 ABG O2 Content 17.5 % vol (15-22) 11/07/16 07:15 ABG Base Excess 3.2 meq/l (-2-2) H 11/07/16 07:15 CBCD WBC 16.6 K/mm3 (4.0-10.0) H D 11/07/16 05:00 RBC 4.64 M/mm3 (4.00-5.60) 11/07/16 05:00 Hgb 13.5 GM/dL (11.7-16.9) D 11/07/16 05:00 Hct 41.3 % (35.4-49) 11/07/16 05:00 MCV 88.9 fl (80-96) 11/07/16 05:00 MCHC 32.8 g/dl (32.0-35.9) 11/07/16 05:00 RDW 18.2 % (11.9-15.9) H 11/07/16 05:00 Plt Count 203 K/MM3 (134-434) D 11/07/16 05:00 MPV 9.7 fl (7.5-11.1) 11/07/16 05:00 CMP Sodium 142 mmol/L (136-145) 11/07/16 05:00 Potassium 3.8 mmol/L (3.5-5.1) 11/07/16 05:00 Chloride 95 mmol/L (98-107) L 11/07/16 05:00 Carbon Dioxide 33 mmol/L (21-32) H 11/07/16 05:00 Anion Gap 14 (8-16) 11/07/16 05:00 BUN 92 mg/dL (7-18) H D 11/07/16 05:00 Creatinine 4.5 mg/dL (0.7-1.3) H D 11/07/16 05:00 Creat Clearance w eGFR 13.53 (>60) 11/07/16 05:00 Calcium 7.6 mg/dL (8.5-10.1) L 11/07/16 05:00 Total Bilirubin 0.5 mg/dL (0.2-1.0) D 11/07/16 05:00 AST 84 U/L (15-37) H 11/07/16 05:00 ALT 116 U/L (12-78) H D 11/07/16 05:00 Alkaline Phosphatase 86 U/L (45-117) 11/07/16 05:00 Total Protein 6.1 g/dl (6.4-8.2) L 11/07/16 05:00 Albumin 2.4 g/dl (3.4-5.0) L 11/07/16 05:00 Intake & Output 11/04/16 11/05/16 11/06/16 11/07/16 23:59 23:59 23:59 23:59 Intake Total 1168.1 2948 4312 1262.5 Output Total 622 606 8354 200 Balance 668.1 2048 2912 1062.5 Weight 136.078 kg 136.078 kg 126.099 kg 125.464 kg Active Medications Generic Name Dose Route Start Last Admin Trade Name Freq PRN Reason Stop Dose Admin Aspirin 600 mg 11/04/16 19:45 11/06/16 09:36 Asa - RC 600 mg DAILY SUSHANT Administration Chlorhexidine Gluconate 1 applic 11/04/16 22:00 11/06/16 23:09 Hibiclens For Decolonization - TP 1 applic HS SUSHANT Administration Sodium Chloride 1,000 mls @ 125 mls/hr 11/04/16 14:00 11/07/16 09:53 Normal Saline - IV 125 mls/hr ASDIR SUSHANT Administration Pantoprazole Sodium 100 mls @ 200 mls/hr 11/05/16 10:00 11/07/16 09:52 Protonix 40mg Ivpb (Pre-Docked) IVPB 200 mls/hr DAILY SUSHANT Administration Dopamine HCl/Dextrose 250 mls @ 25.515 mls/hr 11/05/16 18:00 11/06/16 17:43 Dopamine 400 Mg/D5w - IVPB Not Given TITR SUSHANT Protocol 5 MCG/KG/MIN Ertapenem 0.5 gm/ Sodium 50 mls @ 50 mls/hr 11/07/16 10:00 11/07/16 11:40 Chloride IVPB 50 mls/hr DAILY SUSHANT Administration Protocol Levetiracetam 1,000 mg 11/05/16 10:00 11/07/16 09:52 Keppra Injection - IVPB 1,000 mg BID S[facility] Administration Methylprednisolone Sodium Succinate 60 mg 11/04/16 18:00 11/07/16 09:52 Solu-Medrol - IVPB 60 mg Q8H-IV SUSHANT Administration Metoprolol Tartrate 5 mg 11/07/16 13:58 Lopressor Injection - IVPUSH Q4H PRN HYPERTENSION Mupirocin 1 applic 11/04/16 22:00 11/07/16 09:53 Bactroban Ointment (For Decolonization) - NS 11/09/16 21:59 1 applic BID [facility] Administration Imaging CXR on 11/07: there are no tubes and catheters visualized. There is a widened mediastinum with large heart and congestive changes with elevated right hemidiaphragm CT spine on 11/04: negative for fracture or acute pathology CT head on 11/04: Moderate soft tissue swelling over left side. Cannot r/o brain edema. Microbiology 11/04/16 10:55 Blood - Peripheral Venous Blood Culture - Preliminary NO GROWTH OBTAINED AFTER 72 HOURS, INCUBATION TO CONTINUE FOR 2 DAYS. 11/04/16 10:55 Blood - Peripheral Venous Blood Culture - Preliminary NO GROWTH OBTAINED AFTER 72 HOURS, INCUBATION TO CONTINUE FOR 2 DAYS. ASSESSMENT/PLAN: 56 yo M w/ h/o COPD, DM2, MARLEY, obesity, former smoker, cellulitis admitted to the ICU from ED s/p cardiac arrest. Cardiac: Cardiogenic shock s/p cardiac arrest; a-fib on elliquis - Etiology unknown, MO unlikely - Elevated troponins 2/2 demand ischemia and cardiac arrest - Bedside ECHO - Maintain MAP > 65% Pulm: Acute respiratory failure - ARDS vs. pulmonary edema - Solumedrol 60mg Q8H - Intubated on vent - Maintain Sat > 88% - Low plateau pressure < 30 - Low tidal volume ventilation - PRN and SUSHANT nebulizer Neuro: Anoxic brain injury s/p cardiac arrest, with autonomic dysfunction - GCS 3 - Spontaneous breath - Unresponsive to all stimuli - Hypertensive, tachycardic, hyperthermic 2/2 autonomic dysfunction ID: Septic shock vs. leukomoid reaction - Infection unlikely - On ertapenem Renal: Respiratory acidosis - Cont. hydration - ABG improving FEN - NS 125ml/hr - Cont. to monitor lytes - NPO Prophylaxis - DVT: hold - GI: On PPI Disposition - Poor prognosis, GOC discussion with family - Cont. to monitor in ICU Code status - Full code Visit type - Emergency Visit Emergency Visit: No - New Patient This patient is new to me today: No - Critical Care Critical Care patient: Yes Total Critical Care Time (in minutes): 35 Critical Care Statement: The care of this patient involved high complexity decision making to prevent further life threatening deterioration of the patient 's condition and/or to evalute & treat vital organ system(s) failure or risk of failure.
[2016-11-07] MEDS: ASPIRIN 300 MG SUPP.RECT RC SCH (17:28)
[2016-11-07] MEDS: METOPROLOL TARTRATE 5 MG/5 ML VIAL IVPUSH PRN (19:37)
[2016-11-07] MEDS: DOPAMINE 400 MG/D5W - 250 ML IVPB SCH (21:40)
[2016-11-07] MEDS: CHLORHEXIDINE GLUCONATE 4% CLEANSER FOR DECOLONIZATION TP SCH (21:42)
[2016-11-08] MEDS: METOPROLOL TARTRATE 5 MG/5 ML VIAL IVPUSH PRN (00:05)
[2016-11-08] MEDS ORDERED: SODIUM CHLORIDE 1,000 ML IV SCH (00:15)
[2016-11-08] MEDS: methylPREDNISolone NA SUCC 125 MG/2 ML VIAL IVPB SCH ×2 (01:58→10:13)
[2016-11-08] MEDS ORDERED: hydrALAZINE HCL 20 MG/ML VIAL IVPUSH ONE (02:00)
[2016-11-08] MEDS ORDERED: hydrALAZINE HCL 20 MG/ML VIAL ONE (02:04)
[2016-11-08 06:19] LABS: BASOPHIL 0.4 % (0-2.0); EOSINOPHIL 2.4 % (0-4.5); MCH 29.6 pg (25.7-33.7); MCHC 33.2 g/dl (32.0-35.9); MEAN CELL VOLUME 89.1 fl (80-96); MEAN PLT VOLUME 10.4 fl (7.5-11.1); NEUTROPHILS 90.4 % (42.8-82.8); RDW 18.2 % (11.9-15.9); WHITE BLOOD COUNT 18.8 K/mm3 (4.0-10.0)
[2016-11-08 06:39] LABS: ALBUMIN 2.3 g/dl (3.4-5.0); BILIRUBIN,TOTAL 0.4 mg/dL (0.2-1.0); CREATININE 3.8 mg/dL (0.7-1.3)
--- NOTE | 2016-11-08 06:41 | PN ---
Progress Note, Physician Chief Complaint: s/p [email or web address] arrest History of Present Illness: remains intubated in ICU, off of cooling blanket, hypertensive - Current Medication List Current Medications: Active Medications Aspirin (Asa -) 600 mg RC DAILY [facility] Last Admin: 11/07/16 17:28 Dose: 600 mg Chlorhexidine Gluconate (Hibiclens For Decolonization -) 1 applic TP HS [facility] Last Admin: 11/07/16 21:42 Dose: 1 applic Pantoprazole Sodium (Protonix 40mg Ivpb (Pre-Docked)) 100 mls @ 200 mls/hr IVPB DAILY [facility] Last Admin: 11/07/16 09:52 Dose: 200 mls/hr Dopamine HCl/Dextrose (Dopamine 400 Mg/D5w -) 250 mls @ 25.515 mls/hr IVPB TITR SUSHANT; 5 MCG/KG/MIN PRN Reason: Protocol Last Admin: 11/07/16 21:40 Dose: Not Given Ertapenem 0.5 gm/ Sodium (Chloride) 50 mls @ 50 mls/hr IVPB DAILY SUSH[facility] PRN Reason: Protocol Last Admin: 11/07/16 11:40 Dose: 50 mls/hr Sodium Chloride (Normal Saline -) 1,000 mls @ 100 mls/hr IV ASDIR [facility] Last Admin: 11/07/16 22:00 Dose: 100 mls/hr Levetiracetam (Keppra Injection -) 1,000 mg IVPB BID [facility] Last Admin: 11/07/16 21:40 Dose: 1,000 mg Methylprednisolone Sodium Succinate (Solu-Medrol -) 60 mg IVPB Q8H-IV [facility] Last Admin: 11/08/16 01:58 Dose: 60 mg Metoprolol Tartrate (Lopressor Injection -) 5 mg IVPUSH Q4H PRN PRN Reason: HYPERTENSION Last Admin: 11/08/16 00:05 Dose: 5 mg Mupirocin (Bactroban Ointment (For Decolonization) -) 1 applic NS BID [facility] Stop: 11/09/16 21:59 Last Admin: 11/07/16 21:40 Dose: 1 applic - Objective Vital Signs: Vital Signs Temperature 98.9 F 11/08/16 06:00 Pulse Rate 111 H 11/08/16 06:00 Respiratory Rate 20 11/08/16 06:00 Blood Pressure 165/86 11/08/16 06:00 O2 Sat by Pulse Oximetry (%) 96 11/07/16 22:00 Constitutional: Yes: Obese, Other (unresponsive) HENT: Yes: Normocephalic Neck: Yes: Trachea Midline Cardiovascular: Yes: Regular Rate and Rhythm, Tachycardia Respiratory: Yes: CTA Bilaterally Gastrointestinal: Yes: Normal Bowel Sounds, Soft Edema: LLE: Trace, RLE: Trace Peripheral Pulses WNL: Yes Neurological: Yes: Unresponsive (pupils fixed, absent coneal reflex, unresponsive) Labs: CBC, BMP 11/08/16 05:05 INR, PTT INR 1.42 (0.82-1.09) H 11/05/16 08:00 Problem List - Problems (1) Cardiac arrest Code(s): I46.9 - CARDIAC ARREST, CAUSE UNSPECIFIED (2) Atrial fibrillation Code(s): I48.91 - UNSPECIFIED ATRIAL FIBRILLATION Qualifiers: Atrial fibrillation type: paroxysmal Qualified Code(s): I48.0 - Paroxysmal atrial fibrillation (3) Congestive heart failure Code(s): I50.9 - HEART FAILURE, UNSPECIFIED Qualifiers: Congestive heart failure type: diastolic Congestive heart failure chronicity: chronic Qualified Code(s): I50.32 - Chronic diastolic ( congestive) heart failure (4) Diastolic CHF Code(s): I50.30 - UNSPECIFIED DIASTOLIC (CONGESTIVE) HEART FAILURE Qualifiers : Qualified Code(s): I50.30 - Unspecified diastolic (congestive) heart failure (5) Hypertension Code(s): I10 - ESSENTIAL (PRIMARY) HYPERTENSION Qualifiers: Hypertension type: essential hypertension Qualified Code(s): I10 - Essential (primary) hypertension (6) MARLEY (obstructive sleep apnea) Code(s): G47.33 - OBSTRUCTIVE SLEEP APNEA (ADULT) (PEDIATRIC) (7) Acute kidney failure with tubular necrosis Code(s): N17.0 - ACUTE KIDNEY FAILURE WITH TUBULAR NECROSIS (8) Anoxic brain injury Code(s): G93.1 - ANOXIC BRAIN DAMAGE, NOT ELSEWHERE CLASSIFIED (9) Cerebral edema due to anoxia Code(s): G93.6 - CEREBRAL EDEMA R09.02 - HYPOXEMIA (10) Fever Code(s): R50.9 - FEVER, UNSPECIFIED Qualifiers: Fever type: unspecified Qualified Code(s): R50.9 - Fever, unspecified Assessment/Plan poor prognosis palliative care evaluation appreciated fever subsiding would taper steroids increase lopressor
[2016-11-08 06:44] LABS: MAGNESIUM 2.4 mg/dL (1.8-2.4)
[2016-11-08 07:19] LABS: ARTERIAL BLD GAS O2 SATURATION 86.4 % (90-98.9); ARTERIAL BLOOD GAS BASE EXCESS 2.6 meq/l (-2-2); ARTERIAL BLOOD GAS HCO3 31.5 meq/L (22-26); ARTERIAL BLOOD GAS PO2 60.8 mmHg (80-100); ARTERIAL BLOOD GAS pH 7.27 (7.35-7.45)
[2016-11-08 07:21] LABS: ALLENS TEST POSITIVE; ART PUNCT SITE RIGHT RADIAL; LPM/O2% 90%; MECH. VENT. YES; PT. ON O2? YES; TYPE OF O2 MECHANICAL VENT
[2016-11-08 07:22] LABS: VENT RATE 20; VT/PRESS 400ML
--- NOTE | 2016-11-08 08:59 | PN ---
Progress Note (short form) - Note Progress Note: remains intubated, unresponsive Vital Signs Period Temp Pulse Resp BP Sys/Galvez Pulse Ox Last 24 Hr 98.2 F-102 F 96-133 20-28 156-173/80-102 89-96 cor-rrr lungs decreased bs at bases abd soft,nt ext trace edema bilaterally CBC, BMP 11/08/16 05:05 11/08/16 05:05 Microbiology 11/04/16 10:55 Blood - Peripheral Venous Blood Culture - Preliminary NO GROWTH OBTAINED AFTER 72 HOURS, INCUBATION TO CONTINUE FOR 2 DAYS. 11/04/16 10:55 Blood - Peripheral Venous Blood Culture - Preliminary NO GROWTH OBTAINED AFTER 72 HOURS, INCUBATION TO CONTINUE FOR 2 DAYS. 11/04/16 16:00 Urine - Urine Marvin Urine Culture - Final NO GROWTH OBTAINED Current Medications Aspirin (Asa -) 600 mg RC DAILY SUSHANT Last Admin: 11/07/16 17:28 Dose: 600 mg Chlorhexidine Gluconate (Hibiclens For Decolonization -) 1 applic TP HS [facility] Last Admin: 11/07/16 21:42 Dose: 1 applic Pantoprazole Sodium (Protonix 40mg Ivpb (Pre-Docked)) 100 mls @ 200 mls/hr IVPB DAILY [facility] Last Admin: 11/07/16 09:52 Dose: 200 mls/hr Dopamine HCl/Dextrose (Dopamine 400 Mg/D5w -) 250 mls @ 25.515 mls/hr IVPB TITR SUSHANT; 5 MCG/KG/MIN PRN Reason: Protocol Last Admin: 11/07/16 21:40 Dose: Not Given Ertapenem 0.5 gm/ Sodium (Chloride) 50 mls @ 50 mls/hr IVPB DAILY SUSH[facility] PRN Reason: Protocol Last Admin: 11/07/16 11:40 Dose: 50 mls/hr Sodium Chloride (Normal Saline -) 1,000 mls @ 100 mls/hr IV ASDIR SUSHANT Last Admin: 11/07/16 22:00 Dose: 100 mls/hr Levetiracetam (Keppra Injection -) 1,000 mg IVPB BID [facility] Last Admin: 11/07/16 21:40 Dose: 1,000 mg Methylprednisolone Sodium Succinate (Solu-Medrol -) 60 mg IVPB Q8H-IV [facility] Last Admin: 11/08/16 01:58 Dose: 60 mg Metoprolol Tartrate (Lopressor Injection -) 5 mg IVPUSH Q4H PRN PRN Reason: HYPERTENSION Last Admin: 11/08/16 00:05 Dose: 5 mg Mupirocin (Bactroban Ointment (For Decolonization) -) 1 applic NS BID [facility] Stop: 11/09/16 21:59 Last Admin: 11/07/16 21:40 Dose: 1 applic a/p fevers- possible pneumonia, possible central fever s//p cardiac arrest anoxia TOO continue ertapenem Day #2
[2016-11-08] MEDS ORDERED: PT OWN MED DRAWER 7, Y5N ONE (09:57)
[2016-11-08] MEDS: levETIRAcetam 500 MG/5 ML INJECTION VIAL IVPB SCH (10:12)
[2016-11-08] MEDS: PANTOPRAZOLE SODIUM 40MG/100 ML IVPB SCH (10:13)
[2016-11-08] MEDS: ASPIRIN 300 MG SUPP.RECT RC SCH (10:13)
[2016-11-08] MEDS: MUPIROCIN 2% TOPICAL OINTMENT FOR DECOLONIZATION NS SCH (10:13)
[2016-11-08] MEDS: ERTAPENEM SODIUM 0.5 GM in SODIUM CHLORIDE 50 ML IVPB SCH (10:14)
[2016-11-08 10:19] VITALS: PULSE 115
[2016-11-08 11:13] LABS: TROPONIN I 0.59 ng/ml (0.00-0.05)
[2016-11-08] MEDS ORDERED: LORAZEPAM CARPU-JECT 2 MG/ML DISP.SYRIN IVPUSH PRN (11:47)
--- NOTE | 2016-11-08 11:55 | PN ---
Physical Exam: SUBJECTIVE: Patient seen and examined at bedside in the ICU. Patient is still intubated and on mechanical ventilation. OBJECTIVE: Intubated on mechanical ventilation Vent settings: AC, RR 20, TV 400, FiO2 90, PEEP 10 Vital Signs Period Temp Pulse Resp BP Sys/Galvez Pulse Ox Last 24 Hr 98.2 F-101.5 F 96-133 20-26 156-173/80-102 89-96 GENERAL: Intubated, unresponsive to all stimuli, off pressor on cooling blanket HEAD: AT, NC EYES: B/L less dilated pupils, non-reactive, no corneal reflex LUNGS: B/L rhonchi HEART: Tachycardic, regular rhythm, S1 and S2, no murmur, rub ABDOMEN: Soft, obese, mild distention, EXTREMITIES: Cold, weak pulses, no edema. SKIN: Warm, dry, normal turgor, no rashes or lesions noted CBCD WBC 18.8 K/mm3 (4.0-10.0) H 11/08/16 05:05 RBC 4.84 M/mm3 (4.00-5.60) 11/08/16 05:05 Hgb 14.3 GM/dL (11.7-16.9) 11/08/16 05:05 Hct 43.2 % (35.4-49) 11/08/16 05:05 MCV 89.1 fl (80-96) 11/08/16 05:05 MCHC 33.2 g/dl (32.0-35.9) 11/08/16 05:05 RDW 18.2 % (11.9-15.9) H 11/08/16 05:05 Plt Count Not Reportable 11/08/16 05:05 MPV 10.4 fl (7.5-11.1) 11/08/16 05:05 CMP Sodium 148 mmol/L (136-145) H 11/08/16 05:05 Potassium 3.9 mmol/L (3.5-5.1) 11/08/16 05:05 Chloride 105 mmol/L (98-107) D 11/08/16 05:05 Carbon Dioxide 32 mmol/L (21-32) 11/08/16 05:05 Anion Gap 11 (8-16) 11/08/16 05:05 BUN 102 mg/dL (7-18) H 11/08/16 05:05 Creatinine 3.8 mg/dL (0.7-1.3) H 11/08/16 05:05 Creat Clearance w eGFR 16.44 (>60) 11/08/16 05:05 Calcium 8.0 mg/dL (8.5-10.1) L 11/08/16 05:05 Total Bilirubin 0.4 mg/dL (0.2-1.0) 11/08/16 05:05 AST 55 U/L (15-37) H D 11/08/16 05:05 ALT 82 U/L (12-78) H D 11/08/16 05:05 Alkaline Phosphatase 74 U/L (45-117) 11/08/16 05:05 Total Protein 6.0 g/dl (6.4-8.2) L 11/08/16 05:05 Albumin 2.3 g/dl (3.4-5.0) L 11/08/16 05:05 Intake & Output 11/05/16 11/06/16 11/07/16 11/08/16 23:59 23:59 23:59 23:59 Intake Total 2948 4312 2562.5 1500 Output Total 900 1400 2300 1000 Balance 2048 2912 262.5 500 Weight 136.078 kg 126.099 kg 125.464 kg 126.099 kg Active Medications Generic Name Dose Route Start Last Admin Trade Name Freq PRN Reason Stop Dose Admin Aspirin 600 mg 11/04/16 19:45 11/08/16 10:13 Asa - RC 600 mg DAILY SUSHANT Administration Chlorhexidine Gluconate 1 applic 11/04/16 22:00 11/07/16 21:42 Hibiclens For Decolonization - TP 1 applic HS SUSHANT Administration Pantoprazole Sodium 100 mls @ 200 mls/hr 11/05/16 10:00 11/08/16 10:13 Protonix 40mg Ivpb (Pre-Docked) IVPB 200 mls/hr DAILY SUSHANT Administration Dopamine HCl/Dextrose 250 mls @ 25.515 mls/hr 11/05/16 18:00 11/07/16 21:40 Dopamine 400 Mg/D5w - IVPB Not Given TITR SUSHANT Protocol 5 MCG/KG/MIN Ertapenem 0.5 gm/ Sodium 50 mls @ 50 mls/hr 11/07/16 10:00 11/08/16 10:14 Chloride IVPB 50 mls/hr DAILY SUSHANT Administration Protocol Sodium Chloride 1,000 mls @ 100 mls/hr 11/08/16 00:15 11/07/16 22:00 Normal Saline - IV 100 mls/hr ASDIR SUSHANT Administration Levetiracetam 1,000 mg 11/05/16 10:00 11/08/16 10:12 Keppra Injection - IVPB 1,000 mg BID SUSHANT Administration Lorazepam 1 mg 11/08/16 11:47 Ativan Injection - IVPUSH 11/09/16 11:46 Q6H PRN AGITATION Methylprednisolone Sodium Succinate 60 mg 11/04/16 18:00 11/08/16 10:13 Solu-Medrol - IVPB 60 mg Q8H-IV SUSHANT Administration Metoprolol Tartrate 5 mg 11/07/16 13:58 11/08/16 00:05 Lopressor Injection - IVPUSH 5 mg Q4H PRN Administration HYPERTENSION Mupirocin 1 applic 11/04/16 22:00 11/08/16 10:13 Bactroban Ointment (For Decolonization) - NS 11/09/16 21:59 1 applic BID SUSHANT Administration ASSESSMENT/PLAN: 56 yo M w/ h/o COPD, DM2, MARLEY, obesity, former smoker, cellulitis admitted to the ICU from ED s/p cardiac arrest. Palliative Care: End of life support - Compassionate wean - Morphine 3mg IVPUSH once - Morphine gtt - Ativan PRN - Emotional support Visit type - Emergency Visit Emergency Visit: No - New Patient This patient is new to me today: No - Critical Care Critical Care patient: Yes Total Critical Care Time (in minutes): 35 Critical Care Statement: The care of this patient involved high complexity decision making to prevent further life threatening deterioration of the patient 's condition and/or to evalute & treat vital organ system(s) failure or risk of failure.
--- NOTE | 2016-11-08 12:36 | PN ---
Teaching Attending Note Name of Resident: [facility] ATTENDING PHYSICIAN STATEMENT I saw and evaluated the patient. I reviewed the resident's note and discussed the case with the resident. I agree with the resident's findings and plan as documented. SUBJECTIVE: Pt seen and examined in the ICU. Clinically unchanged. Unresponsive but with spontaneous breaths. OBJECTIVE: Last Vital Signs Temp Pulse Resp BP Pulse Ox 98.9 F 115 H 20 167/85 91 L 11/08/16 06:00 11/08/16 10:05 11/08/16 11:25 11/08/16 08:00 11/08/16 10:05 Intake & Output 11/05/16 11/06/16 11/07/16 11/08/16 23:59 23:59 23:59 23:59 Intake Total 2948 4312 2562.5 1500 Output Total 900 1400 2300 1000 Balance 2048 2912 262.5 500 Weight 300 lb 278 lb 276 lb 9.6 oz 278 lb Gen: intubated, unresponsive Heart: tachycardic, regular Lung: scattered rhonchi Abd: soft, nontender Ext: + edema CBC, BMP 11/08/16 05:05 11/08/16 05:05 Active Medications Aspirin (Asa -) 600 mg RC DAILY SUSHANT Last Admin: 11/08/16 10:13 Dose: 600 mg Chlorhexidine Gluconate (Hibiclens For Decolonization -) 1 applic TP HS SUSHANT Last Admin: 11/07/16 21:42 Dose: 1 applic Pantoprazole Sodium (Protonix 40mg Ivpb (Pre-Docked)) 100 mls @ 200 mls/hr IVPB DAILY SUSHANT Last Admin: 11/08/16 10:13 Dose: 200 mls/hr Dopamine HCl/Dextrose (Dopamine 400 Mg/D5w -) 250 mls @ 25.515 mls/hr IVPB TITR SUSHANT; 5 MCG/KG/MIN PRN Reason: Protocol Last Admin: 11/07/16 21:40 Dose: Not Given Ertapenem 0.5 gm/ Sodium (Chloride) 50 mls @ 50 mls/hr IVPB DAILY SUSHANT PRN Reason: Protocol Last Admin: 11/08/16 10:14 Dose: 50 mls/hr Sodium Chloride (Normal Saline -) 1,000 mls @ 100 mls/hr IV ASDIR SUSHANT Last Admin: 11/07/16 22:00 Dose: 100 mls/hr Levetiracetam (Keppra Injection -) 1,000 mg IVPB BID SUSHANT Last Admin: 11/08/16 10:12 Dose: 1,000 mg Lorazepam (Ativan Injection -) 1 mg IVPUSH Q6H PRN PRN Reason: AGITATION Stop: 11/09/16 11:46 Methylprednisolone Sodium Succinate (Solu-Medrol -) 60 mg IVPB Q8H-IV SUSHANT Last Admin: 11/08/16 10:13 Dose: 60 mg Metoprolol Tartrate (Lopressor Injection -) 5 mg IVPUSH Q4H PRN PRN Reason: HYPERTENSION Last Admin: 11/08/16 00:05 Dose: 5 mg Mupirocin (Bactroban Ointment (For Decolonization) -) 1 applic NS BID COUNT INCLUDES THE [facility] Stop: 11/09/16 21:59 Last Admin: 11/08/16 10:13 Dose: 1 applic ASSESSMENT AND PLAN: s/p Cardiopulmonary Arrest - suspect Primary respiratory arrest Acute on Chronic Hypercapneic and Hypoxic Respiratory Failure r/o Acute COPD Exacerbation r/o ARDS vs Acute Pulmonary Edema Shock - cardiogenic vs septic Acute Kidney Injury Elevated LFTs likely ischemic injury Lactic Acidosis MARLEY/OHS Morbid Obesity Atrial Fibrillation Pulmonary HTN Suspect Central Fevers - IVF - titrate pressor support to maintain MAP >65 - inhaled bronchodilators - continue empiric antibiotics - echocardiogram - f/u EEG - continue empiric antiepileptics - low tidal volume ventilation, titrate PEEP, FiO2 to maintain SpO2 88% if possible - DVT/GI prophylaxis - multiple family members at bedside, plan for compassionate extubation when ready, agree with plan
--- NOTE | 2016-11-08 12:59 | PN ---
Progress Note (short form) - Note Progress Note: Chief Complaint: PEA arrest History of Present Illness: intubated, not responsive. discussed with family (who I know from outpatient care) and they are ready to pursue extubation and comfort care. Current Medications Aspirin (Asa -) 600 mg RC DAILY SUSHANT Last Admin: 11/08/16 10:13 Dose: 600 mg Chlorhexidine Gluconate (Hibiclens For Decolonization -) 1 applic TP HS SUSHANT Last Admin: 11/07/16 21:42 Dose: 1 applic Pantoprazole Sodium (Protonix 40mg Ivpb (Pre-Docked)) 100 mls @ 200 mls/hr IVPB DAILY SUSHANT Last Admin: 11/08/16 10:13 Dose: 200 mls/hr Dopamine HCl/Dextrose (Dopamine 400 Mg/D5w -) 250 mls @ 25.515 mls/hr IVPB TITR SUSHANT; 5 MCG/KG/MIN PRN Reason: Protocol Last Admin: 11/07/16 21:40 Dose: Not Given Ertapenem 0.5 gm/ Sodium (Chloride) 50 mls @ 50 mls/hr IVPB DAILY SUSHANT PRN Reason: Protocol Last Admin: 11/08/16 10:14 Dose: 50 mls/hr Sodium Chloride (Normal Saline -) 1,000 mls @ 100 mls/hr IV ASDIR SUSHANT Last Admin: 11/07/16 22:00 Dose: 100 mls/hr Levetiracetam (Keppra Injection -) 1,000 mg IVPB BID SUSHANT Last Admin: 11/08/16 10:12 Dose: 1,000 mg Lorazepam (Ativan Injection -) 1 mg IVPUSH Q6H PRN PRN Reason: AGITATION Stop: 11/09/16 11:46 Methylprednisolone Sodium Succinate (Solu-Medrol -) 60 mg IVPB Q8H-IV SUSHANT Last Admin: 11/08/16 10:13 Dose: 60 mg Metoprolol Tartrate (Lopressor Injection -) 5 mg IVPUSH Q4H PRN PRN Reason: HYPERTENSION Last Admin: 11/08/16 00:05 Dose: 5 mg Mupirocin (Bactroban Ointment (For Decolonization) -) 1 applic NS BID SUSHANT Stop: 11/09/16 21:59 Last Admin: 11/08/16 10:13 Dose: 1 applic Vital Signs - 24 hr 11/07/16 11/07/16 11/07/16 13:31 14:00 15:00 Temperature 101.5 F H 101 F H Pulse Rate 129 H 122 H Respiratory 20 26 H 20 Rate Blood Pressure 169/80 O2 Sat by Pulse Oximetry (%) 11/07/16 11/07/16 11/07/16 15:18 16:00 16:29 Temperature 100.5 F H Pulse Rate 120 H Respiratory 20 20 20 Rate Blood Pressure 164/84 O2 Sat by Pulse 94 L Oximetry (%) 11/07/16 11/07/16 11/07/16 17:00 18:00 18:50 Temperature 99.8 F H 100.2 F H Pulse Rate 118 H 118 H Respiratory 20 20 20 Rate Blood Pressure 167/86 166/88 O2 Sat by Pulse Oximetry (%) 11/07/16 11/07/16 11/07/16 19:00 19:37 20:00 Temperature 99.8 F H Pulse Rate 118 H 115 H 102 H Respiratory 20 20 Rate Blood Pressure 172/90 172/90 165/92 O2 Sat by Pulse Oximetry (%) 11/07/16 11/07/16 11/08/16 21:15 22:00 00:00 Temperature 99.4 F 99 F Pulse Rate 105 H 97 H Respiratory 20 20 20 Rate Blood Pressure 168/97 169/99 O2 Sat by Pulse 96 Oximetry (%) 11/08/16 11/08/16 11/08/16 00:05 00:26 01:00 Temperature 98.5 F Pulse Rate 105 H 98 H Respiratory 20 20 Rate Blood Pressure 173/102 173/101 O2 Sat by Pulse Oximetry (%) 11/08/16 11/08/16 11/08/16 02:00 03:00 03:35 Temperature 98.2 F 98.4 F Pulse Rate 96 H 102 H Respiratory 20 20 20 Rate Blood Pressure 171/95 156/84 O2 Sat by Pulse Oximetry (%) 11/08/16 11/08/16 11/08/16 04:00 05:00 06:00 Temperature 98.4 F 98.9 F Pulse Rate 105 H 108 H 111 H Respiratory 20 20 20 Rate Blood Pressure 164/87 159/88 165/86 O2 Sat by Pulse Oximetry (%) 11/08/16 11/08/16 11/08/16 06:55 07:00 08:00 Temperature Pulse Rate 114 H 114 H Respiratory 20 20 20 Rate Blood Pressure 167/85 167/85 O2 Sat by Pulse Oximetry (%) 11/08/16 11/08/16 11/08/16 09:35 10:05 11:25 Temperature Pulse Rate 115 H Respiratory 20 20 Rate Blood Pressure O2 Sat by Pulse 91 L Oximetry (%) Intake & Output 11/06/16 11/07/16 11/08/16 11/09/16 07:59 07:59 07:59 07:59 Intake Total 3882 3468.5 3050 Output Total 9922 106 9805 Balance 2482 2568.5 -50 Weight 278 lb 276 lb 9.6 oz 278 lb Constitutional: Yes: No Distress, Calm, Obese. Intubated, sedated. Eyes: No: Sclera Icterus HENT: intubated Cardiovascular: Yes: Regular Rate and Rhythm, S1, S2, Other (PMI non diplaced). No: JVD (tds exam ++), Gallop, Murmur Respiratory: Yes: coarse bs. No: Accessory Muscle Use, Rales, Wheezes Gastrointestinal: Yes: Normal Bowel Sounds, Soft. No: Tenderness Musculoskeletal: Yes: Other (No kyphosis) Extremities: No: Cold Edema: Yes (thigs (SCDs bilat)) Integumentary: No: Jaundice Neurological: unresposive, pupils fixed and dilated. Psychiatric: No: Agitated Labs: CBC, BMP 11/08/16 05:05 11/08/16 05:05 - ....Imaging EKG: Other (tele: sr/sinus tach. Intermittent brief svt) Assessment/Plan 08/2016 LUZ MARIA: No thrombus. Nl lv size/fn. RV dilated, nl func. Mod TR. 2015 echo: Mild LVH. Nl LV size and function. E to A reversal. Mild RV dilation. RVSP 31 + RAP, mild pHTN. Mild asc ao dilation 2014 echo: Nl LV/RV. mild-mod TR. RVSP:>60 2014 persantine stress MPI: no EKG changes. Nl perf. nl EF 56 yo smoker with h/o afib/flutter on xarelto, HTN, HL, diastolic heart failure , severe pulmonary HTN, ?COPD, severe MARLEY presents s/p PEA arrest. PEA arrest - suspect pulmonary etiology. CE's only mildly elevated. EKG without evidence of NE. -? anoxic encephalopathy --> will plan on extubation and comfort care per discussion with family. PNA (RLL), fever - compassionate care. Symptomatic paroxysmal atrial flutter/ fibrillation --> currently in SR - ok to hold rate control meds and AC. diastolic dysfunction/chronic LE edema with recurrent cellulitis and LE wounds. - Ok for IVF if in line with goc. severe (most recently mild) pulmonary hypertension with RV enlargement - extubation as above. acute on chronic hypoxic/hypercapneic RF: - extubation as above. HTN with LVH - ok to hold anti-hypertensives. est crit care time 35 min
--- NOTE | 2016-11-08 14:39 | PN ---
Progress Note (short form) - Note Progress Note: 56 year old man with history of atrial fibrillation, hyperlipidemia and MARLEY admitted post cardiac arrest. Patient remains essentially unresponsive and family is in support of terminal weaning. No further intervention is needed from Renal. Thanks for the consultation. Problem List - Problems (1) Cardiac arrest Code(s): I46.9 - CARDIAC ARREST, CAUSE UNSPECIFIED (2) Atrial fibrillation Code(s): I48.91 - UNSPECIFIED ATRIAL FIBRILLATION Qualifiers: Atrial fibrillation type: paroxysmal Qualified Code(s): I48.0 - Paroxysmal atrial fibrillation (3) Diastolic CHF Code(s): I50.30 - UNSPECIFIED DIASTOLIC (CONGESTIVE) HEART FAILURE Qualifiers : Qualified Code(s): I50.30 - Unspecified diastolic (congestive) heart failure (4) Obesity Code(s): E66.9 - OBESITY, UNSPECIFIED (5) Acute kidney failure with tubular necrosis Assessment/Plan: Renal function remains essentially stable with improved urine output. Awaiting terminal weaning. Code(s): N17.0 - ACUTE KIDNEY FAILURE WITH TUBULAR NECROSIS
[2016-11-08] MEDS ORDERED: morphine CARPU-JECT 4 MG/1 ML DISP.SYRIN IVPUSH ONE (14:58)
[2016-11-08] MEDS ORDERED: MORPHINE 100 MG in SODIUM CHLORIDE 98 ML IVPB SCH (15:00)
[2016-11-08 15:58] VITALS: BP 172/80; TEMP 100
--- NOTE | 2016-11-08 17:22 | EKG ---
Test Reason : Blood Pressure : / mmHG Vent. Rate : 116 BPM Atrial Rate : 116 BPM P-R Int : 160 ms QRS Dur : 126 ms QT Int : 356 ms P-R-T Axes : 035 091 017 degrees QTc Int : 494 ms SINUS TACHYCARDIA BIATRIAL ENLARGEMENT RIGHT BUNDLE BRANCH BLOCK ABNORMAL ECG WHEN COMPARED WITH ECG OF 04-NOV-2016 10:44, SINUS RHYTHM HAS REPLACED ECTOPIC ATRIAL RHYTHM VENT. RATE HAS INCREASED BY 65 BPM T WAVE VARIATION Confirmed by LUH BRAXTON, SAGE ([id number]) on 11/08/2016 5:21:41 PM Referred By: Confirmed By:SAGE ARVIZU MD
--- NOTE | 2016-11-08 17:24 | EKG ---
Test Reason : Blood Pressure : / mmHG Vent. Rate : 051 BPM Atrial Rate : 051 BPM P-R Int : 160 ms QRS Dur : 140 ms QT Int : 500 ms P-R-T Axes : -57 086 033 degrees QTc Int : 460 ms UNDETERMINED RHYTHM WITH PREMATURE ATRIAL COMPLEXES IN A PATTERN OF BIGEMINY RIGHT BUNDLE BRANCH BLOCK ABNORMAL ECG WHEN COMPARED WITH ECG OF 02-SEP-2016 14:48, RIGHT BUNDLE BRANCH BLOCK IS SEEN VENT. RATE HAS SLIGHTLY DECREASED CLINICAL CORRELATION IS RECOMMENDED Confirmed by SAGE ARVIZU MD ([id number]) on 11/08/2016 5:23:48 PM Referred By: Confirmed By:SAEG ARVIZU MD
--- NOTE | 2016-11-09 08:35 | DS ---
Physical Examination Labs: CBC, BMP 11/08/16 05:05 11/08/16 05:05 Discharge Summary Reason For Visit: CARDIAC ARREST Hospital Course: Admitted to ICU after at home arrest-upon EMS arrival pt was in asystole, was resuscitated in field, intubated. Cause was likely pulmonary, without evidence of cardiac event. patient remained unresponsive with hypoxic brain injury. Also had shock liver, ATN with renal insufficiency and central fever. After discussion with family regarding pts views on prolonged life-support without meaningful recovery Mr Alcazar was compassionately extubated and on 11.08.16 with family at bedside. Condition: - Instructions Disposition: - Home Medications Comprehensive Discharge Medication List: Ambulatory Orders
[2016-11-10 10:12] LABS: COCAINE (METABOLITE) Negative ng/mL (Cutoff=300); METHADONE, URINE Positive (Cutoff=300); METHADONE, URINE See Final Results ng/mL (Cutoff=300)
== END 2016-11-08 15:15 | disposition expired | DRG 870 ==
LOC: JER 10:37 → JERBED 11:14 → JICU 13:16
PROVIDERS: ADMIT Internal Medicine; ATTEND Internal Medicine
PROC: 5A1955Z Respiratory Ventilation, Greater than 96 Consecutive Hours (ICD-10-PCS; principal; 2016-11-04)
DX: A41.89 Other specified sepsis (principal); N17.0 Acute kidney failure with tubular necrosis; K72.00 Acute and subacute hepatic failure without coma; G93.6 Cerebral edema; J96.01 Acute respiratory failure with hypoxia; J96.02 Acute respiratory failure with hypercapnia; R65.21 Severe sepsis with septic shock; J69.0 Pneumonitis due to inhalation of food and vomit; L03.116 Cellulitis of left lower limb; L03.115 Cellulitis of right lower limb; I50.30 Unspecified diastolic (congestive) heart failure; E87.2 Acidosis; G93.1 Anoxic brain damage, not elsewhere classified; I46.9 Cardiac arrest, cause unspecified; I45.19 Other right bundle-branch block; I48.91 Unspecified atrial fibrillation; I11.0 Hypertensive heart disease with heart failure; I27.2 Other secondary pulmonary hypertension; G47.30 Sleep apnea, unspecified; J44.9 Chronic obstructive pulmonary disease, unspecified; E66.01 Morbid (severe) obesity due to excess calories; Z68.35 Body mass index [BMI] 35.0-35.9, adult; Z71.3 Dietary counseling and surveillance; Z96.652 Presence of left artificial knee joint; Z87.891 Personal history of nicotine dependence
CPT/HCPCS: 36415; 36600; 70450-TC; 71010-TC; 72125-TC; 80053; 80307; 81003; 81015; 82375; 82550; 82553; 82803; 83050; 83605; 83735; 84100; 84484; 85025; 85027; 85610; 85730; 86850; 86900; 86901; 87040; 87070; 87086; 87186; 87205; 93005; 93010; 93306-TC; 94002; 95816; 99285-25